=== PATIENT | female | born 1945 | race Caucasian/White ===

== ENCOUNTER 2016-05-29 20:11 | Inpatient (IN) ==
--- NOTE | 2016-05-29 20:31 | ED EKG INTERP ---
EKG Interpretation - EKG Time of EKG reading by physician:: 20:14 EKG Read and Signed by:: Lucas Waite EKG Interpretation (*Must complete 3 of following elements*): Normal Rate: 103 Rhythm: Sinus tachycardia Attestation - Scribe Verification/Attestation Scribe:: Catracho Edmond Acting as Scribe for:: Lucas Waite Scribe documention review:: This chart was documented by a scribe and accurately reflects the service the provider performed and the decisions made by the provider.
--- NOTE | 2016-05-29 20:37 | PROVIDER DOCUMENTATION ---
HPI-Respiratory General - General Chief Complaint: Shortness of Breath Stated Complaint: SOB Time Seen by Provider: 05/29/16 20:22 Source: patient Allergies/Adverse Reactions: Patient Allergies Allergy/AdvReac Type Severity Reaction Status Date / Time amoxicillin Allergy Unknown Unknown Verified 05/29/16 21:17 Home Medications: Home Medication List Medication Instructions Recorded Confirmed Last Taken Type Albuterol [Albuterol Neb] 2.5 mg INH [id number] 06/28/12 05/29/16 05/29/16 History Alprazolam [Xanax] 0.5 mg PO TID 06/28/12 05/29/16 05/29/16 History Aspirin 81 mg PO DAILY 06/28/12 05/29/16 05/29/16 History Lisinopril [Zestril] 10 mg PO DAILY 06/28/12 05/29/16 05/29/16 History Omeprazole 20 mg PO DAILY 06/28/12 05/29/16 05/29/16 History Pravastatin Sodium 80 mg PO HS 06/28/12 05/29/16 05/29/16 History Baclofen 10 mg PO DAILY 02/04/14 05/29/16 05/29/16 History Citalopram [Celexa] 1 tab PO DAILY 02/04/14 05/29/16 05/29/16 History Oxybutynin Chloride [Ditropan Xl] 10 mg PO QHS 02/09/15 05/29/16 05/29/16 History Hydrocodone/Acetaminophen [[place]sea 1 tab PO PRN PRN 05/29/16 05/29/16 05/29/16 History 5-325 Tablet] Morphine Liquid [Roxanol Conc. 10 mg PO PRN PRN 05/29/16 05/29/16 05/29/16 History Liquid] Tramadol [Ultram] 1 tab PO 4XDAY 05/29/16 05/29/16 05/29/16 History Trazodone [Desyrel] 1 tab PO HS 05/29/16 05/29/16 05/29/16 History - History of Present Illness-Resp Nature of Presenting Problem: Pt is a 70 yof who presents to ER via EMS with CC of sob that started earlier tonight. Pt reports that she has recently developed a mild, non productive cough and worsening shortness of breath. Per EMS, pt was 83% on 3L O2 nasal canula at home and after a breathing treatment in ambulance, pt was 90% on 3L O2. On exam, pt was mildly tachycardic and had a B/P of (114/53). Quality of Pain: reports: other (sob) Severity in ED: reports: moderate Onset/Duration: reports: this evening Timing: reports: still present, improving Cough Quality/Degree: reports: mild. denies: productive cough Episode Frequency: occasional episodes Modifying Factors: improves with: albuterol nebulizer Associated Symptoms: reports: cough, shortness of breath, short of breath, wheezing. denies: chest pain/soreness, dizziness, earache, facial pain, fever/ chills, flu-like symptoms, headache, heart racing, hurts to breathe, hyperventilating, lightheadedness, muscle/bodyaches, nasal congestion, nasal drainage, sinus pain, sore throat, sweaty Review of Systems - Adult - REVIEW OF SYSTEMS - ADULT Constitutional: denies: chills, fever, fatique, night sweats, weight gain, weight loss Eyes: reports: no symptoms reported Ears, Nose, Mouth & Throat: reports: no symptoms reported Cardiovascular: denies: chest pain, edema, heart murmur, irregular heart rate, orthopnea, palpitations, poor circulation, PND, syncope Respiratory: reports: chronic cough, cough, shortness of breath, wheezing. denies: dyspnea on exertion, excessive sputum production, hemoptysis, pleurisy Gastrointestinal: reports: no symptoms reported Genitourinary: reports: no symptoms reported Musculoskeletal: reports: no symptoms reported Integumentary: reports: no symptoms reported Neurological: denies: ataxia, dizziness/vertigo, headache/migraines, loss of balance, numbness, paresthesia, seizure, slurred speech, syncope, tremors Psychiatric: reports: no symptoms reported Endocrine: reports: no symptoms reported Hematologic/Lymphatic: reports: no symptoms reported Allergic/Immunologic: reports: no symptoms reported All Other Systems: Reviewed and Negative Past History - Adult - PAST MEDICAL HISTORY-ADULT Review of Records: reports: Nursing Assessment Review, Medications Reviewed Cardiovascular: reports: HTN, hyperlipidemia Respiratory: reports: COPD Neurological: reports: CVA, stroke deficits (left arm contracted) - PRIOR SURGERIES/PROCEDURES Surgical/Procedure History: reports: appendectomy, hysterectomy, other (CTS) - IMMUNIZATION STATUS Childhood Immunizations: See Nurse Assessment Flu Vaccine: See Nurse Assessment Physical Exam-General - PHYSICAL EXAM-ADULT Initial Vital Signs Reviewed: Yes - CONSTITUTIONAL General Appearance: appears well, alert, moderate distress, cachetic, thin, lethargic. negative: no apparent distress, mild distress, severe distress, obese, anxious, slow to respond, obtunded, combative - RESPIRATORY Respiratory: chest non-tender, rhonchi (mild diffuse), wheezing. negative: lungs clear, normal breath sounds - CARDIOVASCULAR Cardiovascular: normal peripheral pulses, tachycardia. negative: regular rate, rhythm, bradycardia, diastolic murmur, systolic murmur, irregularly irregular - NEUROLOGIC Neurologic: grossly normal, no motor/sensory deficits. negative: facial droop, focal weakness, motor weakness, sensory deficit - PSYCHIATRIC Psych/Mental Status: normal thought content, normal thought process, oriented x 3, anxious, disheveled. negative: normal mood/affect, disoriented x 3, depressed affect, paranoid, tearful Progress - PLAN OF CARE/RESULTS Progress/Plan/Lab Results: POC: labs/X-ray Vital Signs - 24 hr 05/29/16 05/29/16 20:22 22:18 Temperature 98.7 F Pulse Rate 107 H 87 Respiratory 18 14 Rate Blood Pressure 114/53 97/62 O2 Sat by Pulse 99 99 Oximetry Orders Category Date Time Status Cardiac Monitoring DIRECTED Care 05/29/16 20:22 Active Saline Loc NOW Care 05/29/16 20:22 Active CHEST-2 VIEWS [RAD] Stat Exams 05/29/16 20:22 Taken BLOOD CULTURE [BLDCUL] Stat Lab 05/29/16 20:20 Results CBC WITH ELECTRONIC DIFF [HEME] Stat Lab 05/29/16 18:42 Completed CK PROFILE [SP CHEM] Stat Lab 05/29/16 20:15 Completed COMPREHENSIVE METABOLIC PANEL [CHEM] Stat Lab 05/29/16 20:15 Completed MAGNESIUM [CHEM] Stat Lab 05/29/16 20:15 Completed PRO B-NATRIURETIC PEPTIDE Stat Lab 05/29/16 20:15 Completed PROTIME WITH INR [COAG] Stat Lab 05/29/16 18:42 Completed PTT [COAG] Stat Lab 05/29/16 18:42 Completed TROPONIN T Stat Lab 05/29/16 20:15 Completed EKG [EKG] Stat Ther 05/29/16 20:22 Ordered Laboratory Tests 05/29/16 05/29/16 05/29/16 18:42 18:42 20:15 WBC 15.03 H RBC 4.15 L Hgb 12.7 Hct 40.1 MCV 96.6 MCH 30.6 MCHC 31.7 L RDW Std Deviation 13.0 Plt Count 236 MPV 10.6 H Immature Gran % (Auto) 0.3 Neut % (Auto) 85.3 H Lymph % (Auto) 6.5 L [place] % (Auto) 7.7 Eos % (Auto) 0.1 Baso % (Auto) 0.1 Immature Gran # (Auto) 0.04 Neut # (Auto) 12.85 H Lymph # (Auto) 0.97 L [place] # (Auto) 1.15 H Eos # (Auto) 0.01 Baso # (Auto) 0.01 PT 9.9 INR 0.93 PTT (Actin FS) 27.6 Sodium 138 Potassium 5.5 H Chloride 94 L Carbon Dioxide 26 Anion Gap 18 BUN 25 H Creatinine 1.3 H Estimated GFR/1.73 m2 41 BUN/Creatinine Ratio 19 Glucose 91 Calculated Osmolality 280 Calcium 10.3 H Magnesium 1.7 Total Bilirubin 0.45 AST 46 H ALT 24 Alkaline Phosphatase 57 Creatine Kinase 646 H Creatine Kinase Index 1.5 CK-MB (CK-2) 9.69 H Troponin T Jyx-A-Enjnacqaosq Pept Total Protein 7.0 Albumin 4.3 Globulin 2.7 Albumin/Globulin Ratio 1.6 05/29/16 05/29/16 20:15 20:15 WBC RBC Hgb Hct MCV MCH MCHC RDW Std Deviation Plt Count MPV Immature Gran % (Auto) Neut % (Auto) Lymph % (Auto) [place] % (Auto) Eos % (Auto) Baso % (Auto) Immature Gran # (Auto) Neut # (Auto) Lymph # (Auto) [place] # (Auto) Eos # (Auto) Baso # (Auto) PT INR PTT (Actin FS) Sodium Potassium Chloride Carbon Dioxide Anion Gap BUN Creatinine Estimated GFR/1.73 m2 BUN/Creatinine Ratio Glucose Calculated Osmolality Calcium Magnesium Total Bilirubin AST ALT Alkaline Phosphatase Creatine Kinase Creatine Kinase Index CK-MB (CK-2) Troponin T 0.028 Yjt-R-Ddieymkjick Pept 1349 H Total Protein Albumin Globulin Albumin/Globulin Ratio - XRAY 1 XRAY: Bilateral XRAY Study: Chest Impression: See EMR Report XRAY Interpretation: COPD - CONSULTS/PCP/HOSPITALIST Notification #1 *Consult/PCP/Hospitalist*: Dr. Olson (Hospitalist) Time Discussed: 22:51 Consult Disposition: Admit Departure - Departure Time of Disposition Order: 22:51 DIAGNOSIS: COPD exacerbation COPD (chronic obstructive pulmonary disease) Qualifiers: COPD type: unspecified COPD Qualified Code(s): J44.9 - Chronic obstructive pulmonary disease, unspecified Leukocytosis Qualifiers: Leukocytosis type: unspecified Qualified Code(s): D72.829 - Elevated white blood cell count, unspecified Disposition: ADMITTED INPATIENT 09 Certified Medical Emergency: Emergent Condition: Stable Attestation - Scribe Verification/Attestation Scribe:: Catracho Edmond Acting as Scribe for:: Lucas Waite Scribe documention review:: This chart was documented by a scribe and accurately reflects the service the provider performed and the decisions made by the provider.
[2016-05-29 21:05] LABS: BASO% 0.1 % (0.0-0.8); EOS# 0.01 X1000 (0.0-0.7); EOS% 0.1 % (0.0-10.0); HEMATOCRIT 40.1 % (37.0-47.0); HEMOGLOBIN 12.7 g/dL (12.0-16.0); IMM GRAN# 0.04 X1000 (0.0-0.04); IMM GRAN% 0.3 % (0.0-0.5); LYMPH# 0.97 X1000 (1.2-3.4); LYMPH% 6.5 % (20.5-51.1); MANUAL DIFF NEEDED? NO; MCH 30.6 PG (27-31); MCHC 31.7 g/dL (33-37); MCV 96.6 FL (81-99); MONO# 1.15 X1000 (0.11-0.59); MONO% 7.7 % (1.7-9.3); MPV 10.6 FL (7.4-10.4); NEUT% 85.3 % (42.2-75.2); PLT 236 X1000 (130-400); RBC 4.15 XMIL (4.2-5.4)
[2016-05-29 21:12] LABS: ALBUMIN 4.3 g/dL (3.5-5.0); CALCIUM 10.3 mg/dL (8.8-10.2); MAGNESIUM 1.7 mg/dL (1.5-2.7); POTASSIUM 5.5 mmol/L (3.5-5.1); TOTAL BILIRUBIN 0.45 mg/dL (0.20-1.00)
[2016-05-29 21:30] LABS: CK INDEX 1.5 (0.0-2.5); CK-MB 9.69 ng/mL (0.0-5.0)
[2016-05-29 21:34] LABS: INR 0.93; PROTIME 9.9 Seconds (9.2-11.7); PTT 27.6 Seconds (22.0-36.0)
[2016-05-29] MEDS ORDERED: LEVAQUIN 750 MG/D5W 150 ML IV ONE (22:52)
[2016-05-29] MEDS ORDERED: SOLU-MEDROL IV ONE (22:52)
[2016-05-29] MEDS ORDERED: DUONEB (A & A) INH ONE (22:52)
--- NOTE | 2016-05-30 00:59 | HISTORY AND PHYSICAL ---
PHYSICIAN: Patient of Dr. Serafin Ahn. REASON FOR ADMISSION: One day history of acute shortness of breath. HISTORY OF PRESENT ILLNESS: Ms. Ena Sanchez is a 62-year-old lady with known COPD, hypertension, CVA with left-sided weakness. She comes in today complaining of acute on chronic shortness of breath. She said she has a longstanding history of chronic dyspnea, worse with exertion. She is on constant home O2 at 2 L/minute. Said today her breathing had gotten so bad that it occurred at rest and she got very anxious and need to get things checked out. She denies any leg swelling. She has pain in the right lower extremity but this is chronic and it is due to the fact that she has some degree of left-sided weakness which has caused her to ambulate and as a consequence she ambulates in an abnormal fashion resulting in the pain in her left ankle. However, there is no redness or swelling. No PND but there is orthopnea occurred today. The patient complains of pleuritic pain. No fever. No chills. Her cough is dry. No upper respiratory symptoms. REVIEW OF SYSTEMS: Twelve systems reviewed. It is only notable for urinary urge incontinence and chronic left-sided weakness which is unchanged. Twelve-system review is negative. Positive findings per HPI. ALLERGIES: Amoxil/amoxicillin. MEDICATIONS: Albuterol 2 puffs q.4, aspirin 81 mg daily, Zestril 10 mg a day, omeprazole 20 mg daily, pravastatin 80 mg at bedtime, Xanax 2.5 mg t.i.d., baclofen 10 mg daily, Celexa 20 mg daily, oxybutynin 10 mg at bedtime, Wynot 7.5 p.r.n., Roxanol 10 mg p.r.n., trazodone 50 mg at bedtime, tramadol 50 mg 4 times a day. PAST SURGICAL HISTORY: Hysterectomy and appendectomy, carpal tunnel release. SOCIAL HISTORY: She smokes about 1 pack a day. No alcohol. Lives by herself. On chronic home O2. No illicit drug use. FAMILY HISTORY: Notable for kidney disease in first-degree relatives. Diabetes and heart disease also positive. LABORATORY WORK: White count 15,000, hemoglobin and hematocrit 12 and 40, platelets 256,000 with 85% neutrophils. Potassium 5.5, BUN is 25, creatinine 1.3, calcium 10.3, AST 46, ALT 24. CK is 646. Troponin 0.028. Index is normal, 1.5. PT, PTT are normal. Chest film just shows COPD, no infiltrate. PHYSICAL EXAMINATION: GENERAL: She is a thin, middle-aged woman who appears older than stated age. She is alert and oriented to person and time. VITAL SIGNS: Blood pressure is 97/60, heart rate is 87, respirations 14, temperature is 98.7, and she is 99% on 3 L. PSYCHIATRIC: Has normal mood and affect. HEENT: Head is normocephalic, atraumatic. Eyes, LB EOMI. She is anicteric and not pale. ENT and oropharynx exam is grossly normal except for positive for oral thrush. No sign of cyanosis. NECK: Supple. No JVD or carotid bruit. No thyromegaly. CHEST: Decreased air entry in both lung smith with scattered expiratory wheezes. CARDIOVASCULAR: First and 2nd sounds heard. No gallops, murmurs, rubs. Rhythm is regular. ABDOMEN: Full, soft, nontender with no megaly. Bowel sounds are normal. RECTAL: Exam deferred at this time. EXTREMITIES: No Edema, clubbing or peripheral cyanosis. Pulses distally intact. NEUROLOGIC: Patient has 2/5 power on the left upper extremity and 3/5 power in the left lower extremity. Right side is 5/5. SKIN: Intact with no breakdown lesion or erythema. 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 ASSESSMENT: 1. Chronic obstructive pulmonary disease exacerbation. 2. Chronic respiratory failure secondary to chronic obstructive pulmonary disease. 3. Left-sided hemiparesis secondary to prior cerebrovascular accident. 4. Hypertension. 5. Hyperkalemia. 6. Tobacco use. 7. Dehydration. PLAN: At this time we will start patient on steroids and short-acting bronchodilator therapy. We will cover patient with empiric antibiotics based on her white count. Start patient on D5 normal saline to address not only patient's dehydrated state but also her hyperkalemia. DVT prophylaxis will be instituted using Lovenox. Smoking cessation was reiterated. The patient says she has been trying to quit but does not have the will to quit on short notice at this point in time. Start patient on nystatin for oral thrush and follow. Follow BMP tomorrow to ensure hydration has rectified her degree of dehydration.
[2016-05-30] MEDS ORDERED: TYLENOL PO PRN (01:55)
[2016-05-30] MEDS ORDERED: D5 NS 1,000 ML IV ONE (01:55)
[2016-05-30] MEDS ORDERED: ZOFRAN IV PRN (01:55)
[2016-05-30] MEDS: NORCO-5 PO PRN (03:17)
[2016-05-30] MEDS: DUONEB (A & A) INH SCH ×6 (03:50→22:50)
[2016-05-30] MEDS: XANAX PO SCH ×4 (04:19→16:18)
[2016-05-30] MEDS: DOXYCYCLINE 100 MG in NS 250 ML IV SCH ×2 (04:19→13:54)
--- NOTE | 2016-05-30 05:45 | EKG Report ---
Test Performed on : 05/29/2016 8:14:03 PM Test Reason : Chest Pain Blood Pressure : / mmHG Vent. Rate : 103 BPM Atrial Rate : 103 BPM P-R Int : 124 ms QRS Dur : 070 ms QT Int : 332 ms P-R-T Axes : 083 076 066 degrees QTc Int : 434 ms Sinus tachycardia. Otherwise normal ECG When compared with ECG of 02-MAR-2016 11:41, No significant change was found Unconfirmed Result
[2016-05-30 06:50] LABS: CALCIUM 9.1 mg/dL (8.8-10.2); POTASSIUM 5.2 mmol/L (3.5-5.1)
[2016-05-30] MEDS: LOVENOX SUBQ SCH (06:54)
[2016-05-30] MEDS: PRILOSEC PO SCH (06:54)
[2016-05-30] MEDS: SOLU-MEDROL IV SCH ×3 (06:54→22:41)
[2016-05-30 07:07] LABS: EOS# 0.01 X1000 (0.0-0.7); EOS% 0.1 % (0.0-10.0); HEMATOCRIT 34.5 % (37.0-47.0); HEMOGLOBIN 10.9 g/dL (12.0-16.0); IMM GRAN# 0.02 X1000 (0.0-0.04); IMM GRAN% 0.2 % (0.0-0.5); LYMPH# 0.31 X1000 (1.2-3.4); LYMPH% 2.4 % (20.5-51.1); MANUAL DIFF NEEDED? YES; MCH 30.1 PG (27-31); MCHC 31.6 g/dL (33-37); MCV 95.3 FL (81-99); MONO# 0.12 X1000 (0.11-0.59); MONO% 0.9 % (1.7-9.3); NEUT% 96.4 % (42.2-75.2); PLT 199 X1000 (130-400); RBC 3.62 XMIL (4.2-5.4)
[2016-05-30 07:44] LABS: BANDS 8 % (0-1); LYMPHS 4 % (21-51)
[2016-05-30] MEDS: ASPIRIN PO SCH (08:14)
[2016-05-30] MEDS: CELEXA PO SCH (08:14)
[2016-05-30] MEDS: LIORESAL PO SCH (08:14)
[2016-05-30] MEDS: MYCOSTATIN SUSP PO SCH ×4 (08:14→22:41)
--- NOTE | 2016-05-30 08:16 | Diag Imaging Result Document ---
PROCEDURE NAME: CHEST-2 VIEWS - 05/29/2016 TWO VIEWS OF THE CHEST: FINDINGS: There is COPD. There are granulomatous calcifications in the right lower lobe and middle lobe. Compared to 03/02/2016, there has been no significant change. There is a biopsy marker in the right breast. IMPRESSION: COPD.
[2016-05-30] MEDS: ULTRAM PO SCH ×4 (08:25→22:41)
[2016-05-30] MEDS ORDERED: PNEUMOVAX 23 IM ONE (08:49)
[2016-05-30] MEDS ORDERED: DUONEB (A & A) INH PRN (13:18)
[2016-05-30] MEDS ORDERED: VANCOMYCIN IV PER PHARMACY MISC SCH (20:45)
[2016-05-30] MEDS: DESYREL PO SCH (22:41)
[2016-05-30] MEDS: PRAVACHOL PO SCH (22:41)
[2016-05-30] MEDS ORDERED: VANCOMYCIN 1,200 MG in NS 250 ML IV ONE (23:00)
[2016-05-31] MEDS: DOXYCYCLINE 100 MG in NS 250 ML IV SCH ×2 (02:24→13:35)
[2016-05-31] MEDS: DUONEB (A & A) INH SCH ×6 (03:22→22:42)
[2016-05-31] MEDS: LOVENOX SUBQ SCH (05:37)
[2016-05-31] MEDS: SOLU-MEDROL IV SCH ×3 (05:37→22:02)
[2016-05-31] MEDS: PRILOSEC PO SCH ×2 (05:37→07:30)
[2016-05-31 06:21] LABS: HEMATOCRIT 33.6 % (37.0-47.0); HEMOGLOBIN 10.8 g/dL (12.0-16.0); LYMPH# 0.44 X1000 (1.2-3.4); MANUAL DIFF NEEDED? YES; MCH 30.3 PG (27-31); MCHC 32.1 g/dL (33-37); MCV 94.4 FL (81-99); MONO# 0.42 X1000 (0.11-0.59); MONO% 3.9 % (1.7-9.3); MPV 10.7 FL (7.4-10.4); NEUT% 92.1 % (42.2-75.2); PLT 183 X1000 (130-400); RBC 3.56 XMIL (4.2-5.4)
[2016-05-31 06:34] LABS: BANDS 2 % (0-1); LYMPHS 8 % (21-51); MONO 4 % (1-9)
[2016-05-31 06:55] LABS: AGAP 9; ALBUMIN 3.3 g/dL (3.5-5.0); ALKALINE PHOSPHATASE 49 U/L (32-104); BUN 22 mg/dL (8-22); CALCIUM 8.9 mg/dL (8.8-10.2); CHLORIDE 102 mmol/L (98-107); COSMO 283; GOT 33 U/L (10-30); GPT 22 U/L (10-36); POTASSIUM 5.1 mmol/L (3.5-5.1); SODIUM 139 mmol/L (136-145); TCO2 28 mmol/L (25-35); TOTAL BILIRUBIN 0.14 mg/dL (0.20-1.00); TOTAL PROTEIN 5.8 g/dL (6.3-8.3)
[2016-05-31] MEDS ORDERED: PRINIVIL PO SCH (09:00)
[2016-05-31] MEDS: XANAX PO SCH ×3 (09:28→16:36)
[2016-05-31] MEDS: CELEXA PO SCH (09:28)
[2016-05-31] MEDS: ASPIRIN PO SCH (09:28)
[2016-05-31] MEDS: LIORESAL PO SCH (09:28)
[2016-05-31] MEDS: MYCOSTATIN SUSP PO SCH ×4 (09:29→22:03)
[2016-05-31] MEDS: ULTRAM PO SCH ×4 (09:38→22:02)
[2016-05-31] MEDS ORDERED: DULCOLAX PR ONE (11:02)
--- NOTE | 2016-05-31 17:55 | PROGRESS NOTE ---
DATE: 05/31/2016 SUBJECTIVE: This patient states that she is feeling a little bit better. She is still complaining of shortness of breath and generalized weakness. She denies nausea, vomiting, diarrhea, constipation. OBJECTIVE: Vital Signs: Temperature 98.4 degrees, pulse 91, respiratory rate 17, blood pressure 160/68, O2 saturation 100% on 3 L of nasal cannula. HEENT: Head normocephalic. No trauma. PERRLA. Neck: Supple. No JVD. No masses. Central trachea. Chest: Decreased air entry bilaterally, scattered expiratory wheezing. Cardiovascular: RRR. No murmurs. Abdomen: Soft, nontender, nondistended. No hepatosplenomegaly. Extremities: No edema. No clubbing. No cyanosis. Neurological: The patient is alert and oriented x3, 2-3/5 left upper and lower extremity strength. Right side is normal. LABORATORY: WBC 10.8, hemoglobin 10.8, hematocrit 33.6, platelet 183,000. Sodium 139, potassium 5.1, chloride 102, bicarbonate 28, BUN 22, creatinine 0.7, glucose 142, calcium 8.9. ASSESSMENT AND PLAN: 1. Bacteremia. We have a positive blood culture that showed gram-positive cocci 1 of 2 but the 2nd blood culture is positive as well but we do not know the bacteria at this moment. This patient has been has been placed on vancomycin and infectious disease department has been consulted. 2. Chronic obstructive pulmonary disease exacerbation. At this point will continue with the same treatment. She is on antibiotics and breathing treatment. She is feeling a little bit better. 3. Chronic respiratory failure secondary to acute on chronic respiratory failure secondary to chronic obstructive pulmonary disease exacerbation. Continue with the same management. It looks like this patient is getting better. 4. Acute kidney injury. Resolved. 5. Left side hemiparesis secondary to prior cerebrovascular accident. Continue with the same management. 6. Hypertension. Will continue with the same medication for now. 7. Hyperkalemia, resolved. 8. Dehydration, resolved. 9. Tobacco use. This patient has been highly advised against smoking cigarettes, will continue with daily cessation education.
[2016-05-31] MEDS: ROCEPHIN 1 GM/NS 50 ML IV SCH (18:22)
--- NOTE | 2016-05-31 20:05 | CONSULTATION ---
DATE OF CONSULTATION: 05/31/2016 CONCLUSION: Patient is admitted to the hospital. She is complaining of shortness of breath and coughing, but her chest x-ray shows only COPD. She does have 2 blood cultures positive for gram positive cocci. I think that they may well be identified as a pneumococcus and that the patient does have a pneumococcal infection in her lungs which just does not show up yet on chest x-ray. RECOMMENDATIONS: I agree with Dr. Reich's decision to treat the patient with Rocephin and vancomycin pending culture results. DISCUSSION: The patient said that she had been coughing for the past 3 to 4 days. She initially did cough up some sputum which was yellow in color and now she coughs up much less and it is clear. She is not having fever or shaking chills. Her lab studies show a CBC with a white count of 10,870, hemoglobin 10.8, and platelet count 183,000. Creatinine 0.7. GFR is greater than 60. Liver function studies are normal. Chest x-ray shows findings compatible with COPD. PODIATRIC ASSISTANT HISTORY: She is a 2 para 2 AB 0. She has had a hysterectomy. PREVIOUS HOSPITALIZATIONS AND OPERATIONS: She has had labor and deliveries, hysterectomy, and carpal tunnel surgery. MEDICAL DISEASES: Positive for stroke and osteoarthritis. FAMILY HISTORY: Positive for kidney disease, diabetes and heart attack. SOCIAL HISTORY: The patient lives alone. She has a lady that comes to her house 4 times a week and helps her out, and also she has Meals On Wheels. She is . She says she stopped smoking cigarettes in February 2016. She rarely drinks alcoholic beverages. At home she is on O2. MEDICATIONS AT HOME: Morphine, Desyrel, Zestril, Ultram Celexa, hydrocodone, omeprazole, baclofen, aspirin, albuterol, pravastatin, alprazolam and oxybutynin. ALLERGIES: The patient is allergic to amoxicillin, the manifestations of which are uncertain. REVIEW OF SYSTEMS: Eyes and ears: She denies having any troubles seeing or hearing. Neck: No stiffness. Respiratory: She does get short of breath with minimal exertion. Cardiac: She does not have a chest pain or palpitations. GI: No nausea, vomiting, or diarrhea. : No dysuria or flank pain. Neurologic: The patient has a left upper extremity paralysis and a left lower leg paresis. There is no tremor. PHYSICAL EXAMINATION: Vital Signs: Temperature is 98.4 degrees, pulse 91, respirations 17, blood pressure 160/68. Weight: 94 pounds. Generally: This is an ill-appearing, elderly female who is in no acute distress. Head, eyes, ears, nose, and throat: She can hear my spoken words. She can see near objects. She has upper dentures. Her mandibular teeth are in good repair, do not have caries. Neck: No meningismus. Thorax: Increased AP diameter of the chest. Lungs: Clear to auscultation. Cardiovascular: Heart rate is regular. Abdomen: Soft and nontender. Neurologic: The patient has left arm paralysis and a left leg paresis. She can hear my spoken words. She can see near objects. Integument: No rash noted. Thank you for the consult.
[2016-05-31] MEDS: DULCOLAX PO SCH (22:01)
[2016-05-31] MEDS: PRAVACHOL PO SCH (22:02)
[2016-05-31] MEDS: DESYREL PO SCH (22:02)
[2016-06-01] MEDS: DUONEB (A & A) INH SCH ×6 (02:45→23:00)
[2016-06-01] MEDS: PRILOSEC PO SCH (06:17)
[2016-06-01] MEDS: LOVENOX SUBQ SCH (06:18)
[2016-06-01] MEDS: SOLU-MEDROL IV SCH ×3 (06:18→21:34)
[2016-06-01] MEDS: NORCO-5 PO PRN (06:18)
[2016-06-01 06:50] LABS: HEMATOCRIT 36.4 % (37.0-47.0); HEMOGLOBIN 11.7 g/dL (12.0-16.0); IMM GRAN# 0.02 X1000 (0.0-0.04); IMM GRAN% 0.2 % (0.0-0.5); LYMPH% 5.1 % (20.5-51.1); MANUAL DIFF NEEDED? YES; MCH 30.2 PG (27-31); MCHC 32.1 g/dL (33-37); MCV 93.8 FL (81-99); MONO# 0.35 X1000 (0.11-0.59); MONO% 3.5 % (1.7-9.3); MPV 10.7 FL (7.4-10.4); NEUT% 91.2 % (42.2-75.2); PLT 209 X1000 (130-400); RBC 3.88 XMIL (4.2-5.4)
[2016-06-01 07:22] LABS: AGAP 10; ALBUMIN 3.8 g/dL (3.5-5.0); ALKALINE PHOSPHATASE 53 U/L (32-104); BUN 18 mg/dL (8-22); CALCIUM 9.1 mg/dL (8.8-10.2); CHLORIDE 101 mmol/L (98-107); COSMO 286; GOT 35 U/L (10-30); GPT 34 U/L (10-36); POTASSIUM 4.2 mmol/L (3.5-5.1); SODIUM 142 mmol/L (136-145); TCO2 31 mmol/L (25-35); TOTAL BILIRUBIN 0.18 mg/dL (0.20-1.00); TOTAL PROTEIN 6.2 g/dL (6.3-8.3)
--- NOTE | 2016-06-01 08:46 | Diag Imaging Result Document ---
PROCEDURE NAME: CHEST-PORTABLE - 05/31/2016 SINGLE FRONTAL RADIOGRAPH OF THE CHEST: COMPARISON: 05/29/2016. FINDINGS: There is evidence of prior granulomatous disease. No new consolidations are identified. There is no definite pleural fluid collection. Cardiac silhouette is stable. IMPRESSION: Stable chest with no definite acute pathology.
[2016-06-01 08:48] LABS: BANDS 3 % (0-1); LYMPHS 9 % (21-51); MONO 3 % (1-9)
[2016-06-01 08:49] LABS: LARGE PLATELETS OCCASIONAL
[2016-06-01] MEDS: XANAX PO SCH ×3 (09:18→16:49)
[2016-06-01] MEDS: LIORESAL PO SCH (09:18)
[2016-06-01] MEDS: CELEXA PO SCH (09:18)
[2016-06-01] MEDS: APRESOLINE PO SCH ×3 (09:18→16:50)
[2016-06-01] MEDS: ULTRAM PO SCH ×4 (09:19→21:34)
[2016-06-01] MEDS: ASPIRIN PO SCH (09:19)
[2016-06-01] MEDS: PRINIVIL PO SCH ×2 (09:23→10:13)
[2016-06-01] MEDS: MYCOSTATIN SUSP PO SCH ×4 (09:24→21:39)
--- NOTE | 2016-06-01 09:29 | PROGRESS NOTE ---
DATE: 06/01/2016 PRESENT ILLNESS: The patient has a blood culture positive for gram-positive cocci, both; in fact, she has 2 blood cultures positive for gram-positive cocci. The organism has not been identified as of yet, but I think it could well be a pneumococcus. I think that she probably does have a pneumonia, which just has not shown up yet on chest x-ray. MEDICATIONS: I agree with the decision to place the patient on vancomycin and Rocephin pending culture results. PHYSICAL EXAMINATION: Vital Signs: Temperature is 98.3 degrees, pulse 94, respirations 19, blood pressure 92/87. General: This is an ill-appearing, elderly female. She is in no acute distress. Lungs: Clear to auscultation today. Cardiovascular: Heart rate is regular. Abdomen: Soft and nontender. Neurologic: The patient has a left arm paralysis and a left leg paresis. LABORATORY AND X-RAY: There is no new x-ray. Lab today shows a CBC with a white count of 9880, hemoglobin 11.7, and platelet count 209,000. Creatinine 0.6. GFR is greater than 60. The blood cultures hopefully will be identified today. ASSESSMENT AND PLAN: For now, the patient has bacteremia and most likely a pneumonia. I would suggest continuing with vancomycin and Rocephin pending culture results. COMORBIDITIES: Patient's comorbidities are that she appears to have chronic obstructive pulmonary disease. She was a cigarette smoker, but says she stopped in February 2016.
[2016-06-01] MEDS ORDERED: VANCOMYCIN 1 GM/NS 250 ML IV SCH (13:00)
[2016-06-01 13:49] LABS: URINE MICRO REVIEW NEEDED? NO; URINE SOURCE CATH
[2016-06-01 13:59] LABS: BILIRUBIN URINE NEGATIVE (NEGATIVE); BLOOD URINE SMALL (NEGATIVE); COLOR YELLOW; GLUCOSE URINE 70 mg/dL (NEGATIVE); LEUKOCYTES URINE LARGE (NEGATIVE); NITRITE URINE NEGATIVE (NEGATIVE); PROTEIN URINE 100 mg/dL (NEGATIVE); SP GRAVITY URINE 1.018; TURBIDITY URINE CLEAR (CLEAR); UR EPITHELIAL CELLS <10 /HPF (<10); URINE BACTERIA 1+ /HPF; URINE WBC TNTC /HPF (<10); UROBILINOGEN URINE NORMAL (NORMAL)
--- NOTE | 2016-06-01 15:14 | PROGRESS NOTE ---
DATE: 06/01/2016 SUBJECTIVE: This patient states that she is feeling better. She is still complaining of shortness of breath and generalized weakness, she has been wheezing, she denies nausea, vomiting, diarrhea, or constipation. OBJECTIVE: Vital Signs: Temperature 98 degrees, pulse 88, respiratory rate 19, blood pressure 160/68, O2 saturation 100% on 3 L of nasal cannula. HEENT: Head normocephalic. No trauma. PERRLA. Neck: Supple. No JVD. No masses. Central trachea. Chest: Bilateral scattered expiratory wheezing, mild rales at the bases. Cardiovascular: RRR. No murmurs. Abdomen: Soft, nontender, nondistended. No hepatosplenomegaly. Extremities: No edema. No clubbing. No cyanosis. Decreased muscle mass. Neurological: The patient is alert and oriented x3. A 2-3/5 left upper extremity and lower extremity strength. Right side is normal. LABORATORY: WBC 9.8, hemoglobin 11.7, hematocrit 36.4, platelets 209,000. Sodium 142, potassium 4.2, chloride 101, bicarbonate 31, BUN 18, creatinine 0.6, glucose 122, calcium 9.1, albumin 3.8. ASSESSMENT AND PLAN: 1. Bacteremia we have a positive blood culture that showed gram positive cocci, this patient has been placed on vancomycin and also she has been getting ceftriaxone. Infectious Disease Department is following this patient. 2. Chronic obstructive pulmonary disease exacerbation. At this point, we will continue with the same treatment. She is still on antibiotics and breathing treatment, steroids, and oxygen. This patient is still having shortness of breath and wheezing. 3. Acute on chronic respiratory failure likely secondary to chronic obstructive pulmonary disease exacerbation. Continue with the same management. 4. Acute kidney injury. Resolved. 5. History of cerebrovascular accident with left side hemiparesis. Continue with the same management. 6. Hypertension. The blood pressure has been high, I increased the dose of lisinopril from 10 to 20 daily, and I will start this patient on a low dose of hydralazine 10 mg p.o. 3 times a day. 7. Hyperkalemia. Resolved. 8. Dehydration. Resolved. 9. Tobacco abuse. This patient has been highly advised against tobacco use and abuse, we will continue with daily cessation education.
[2016-06-01] MEDS: ROCEPHIN 1 GM/NS 50 ML IV SCH (16:50)
[2016-06-01] MEDS: PRAVACHOL PO SCH (21:34)
[2016-06-01] MEDS: DULCOLAX PO SCH (21:34)
[2016-06-01] MEDS: DESYREL PO SCH (21:34)
[2016-06-02] MEDS: DUONEB (A & A) INH SCH ×6 (03:10→23:45)
[2016-06-02] MEDS: SOLU-MEDROL IV SCH ×3 (06:06→23:10)
[2016-06-02] MEDS: NORCO-5 PO PRN (06:06)
[2016-06-02] MEDS: LOVENOX SUBQ SCH (06:07)
[2016-06-02] MEDS: PRILOSEC PO SCH (06:07)
[2016-06-02 06:10] LABS: MANUAL DIFF NEEDED? NO
[2016-06-02 06:17] LABS: HEMOGLOBIN 11.7 g/dL (12.0-16.0); IMM GRAN# 0.05 X1000 (0.0-0.04); IMM GRAN% 0.6 % (0.0-0.5); LYMPH# 0.65 X1000 (1.2-3.4); LYMPH% 8.4 % (20.5-51.1); MCH 30.1 PG (27-31); MCHC 32.5 g/dL (33-37); MCV 92.5 FL (81-99); MONO# 0.51 X1000 (0.11-0.59); MONO% 6.6 % (1.7-9.3); MPV 10.2 FL (7.4-10.4); NEUT% 84.4 % (42.2-75.2); PLT 224 X1000 (130-400); RBC 3.89 XMIL (4.2-5.4)
[2016-06-02 06:31] LABS: AGAP 12; BUN 18 mg/dL (8-22); CALCIUM 8.9 mg/dL (8.8-10.2); CHLORIDE 96 mmol/L (98-107); COSMO 285; POTASSIUM 3.9 mmol/L (3.5-5.1); SODIUM 141 mmol/L (136-145); TCO2 33 mmol/L (25-35)
--- NOTE | 2016-06-02 08:46 | PROGRESS NOTE ---
DATE: 06/02/2016 PRESENT ILLNESS: The patient is admitted to the hospital with positive blood cultures. Both are growing Staph capitis, which is the type of coagulase-negative staph. Since both blood cultures are growing the same organism, I think this is a true bacteremia. The exact origin of the bacteremia is uncertain to me at this time. She does have a clear repeat chest x-rays, so it does not look like it originates from a pneumonia. I am concerned that she may have endocarditis. MEDICATIONS: Currently, the patient is on vancomycin and Rocephin. PHYSICAL EXAMINATION: Vital Signs: Temperature is 98.1 degrees, pulse 78, respirations 16, blood pressure 175/73. General: This is a chronically ill-appearing, elderly female. She is in no acute distress. Lungs: Clear to auscultation. Cardiovascular: Regular heart rate. I did not hear a murmur. Abdomen: Soft and nontender. Neurologic: The patient's left arm is paralyzed. She has a left leg paresis. LAB AND X-RAY: The chest x-ray shows no acute disease, but as mentioned above both blood cultures are growing Staph capitis. Creatinine is 0.7. GFR is greater than 60. CBC shows a white count of 7700, hemoglobin 11.7, and platelet count 224,000. ASSESSMENT AND PLAN: Patient has a Staph bacteremia, the origin of which is uncertain. As mentioned above, I am going to get an echocardiogram to look for the possibility of endocarditis. My plan is to treat with vancomycin as a single agent and discontinue Rocephin. The reason why I am sticking with vancomycin is that the patient is allergic to amoxicillin, although the manifestations of the allergy were not certain. COMORBIDITIES: She is elderly and has chronic obstructive pulmonary disease and has a history of cigarette smoking.
[2016-06-02] MEDS: PRINIVIL PO SCH (10:55)
[2016-06-02] MEDS: ULTRAM PO SCH ×4 (10:57→23:15)
[2016-06-02] MEDS: LIORESAL PO SCH (10:58)
[2016-06-02] MEDS: XANAX PO SCH ×3 (10:58→18:32)
[2016-06-02] MEDS: ASPIRIN PO SCH (10:58)
[2016-06-02] MEDS: APRESOLINE PO SCH ×2 (11:00→18:32)
[2016-06-02] MEDS: CELEXA PO SCH (11:00)
[2016-06-02] MEDS: MYCOSTATIN SUSP PO SCH ×4 (12:16→23:10)
[2016-06-02] MEDS: VANCOMYCIN 1 GM/NS 250 ML IV SCH (13:53)
--- NOTE | 2016-06-02 14:00 | PROGRESS NOTE ---
DATE: 06/02/2016 SUBJECTIVE: This patient states that she is feeling better. She is still complaining of mild shortness of breath. We will continue with oxygen. She uses oxygen at home as well. Blood pressure is still elevated so I will increase the dose of hydralazine from 10 mg p.o. t.i.d. to 25 t.i.d. She has a positive blood culture that showed Staphylococcus capitis and Infectious Disease Department is on board. We will get an echocardiogram to rule out any vegetations. I discussed the case with the Infectious Disease doctor and this patient should go home/rehab center with IV antibiotics. OBJECTIVE: Vital Signs: Temperature 98.4 degrees, pulse 86, respiratory rate 16, blood pressure 177/64, oxygen saturation 100% on 3 L of nasal cannula. HEENT: Head normocephalic. No trauma. PERRLA. Neck: Supple. No JVD. No masses. Central trachea. Cardiovascular: RRR. No murmurs. Chest: Bilateral scattered expiratory wheezing. Mild rales at the bases. Abdomen: Soft, nontender, nondistended. No hepatosplenomegaly. Extremities: No edema. No clubbing. No cyanosis. Decreased muscle mass. Neurological: The patient is alert and oriented x3. She has 2/5 left upper extremity and lower extremity strength. Right side is normal. LABORATORY: WBC 7.7, hemoglobin 11.7, hematocrit 36.0, platelets 244,000. Sodium 141, potassium 3.9, chloride 96, bicarbonate 33. BUN 18, creatinine 0.7, glucose 139, calcium 8.9. ASSESSMENT AND PLAN: 1. Bacteremia, secondary to Staphylococcus capitis. This patient is going to continue with IV antibiotics. Infectious Disease Department is following this patient. She will get an echocardiogram done to rule out any vegetation at the level of the valve. We are going to ask for placement for this patient. 2. Chronic obstructive pulmonary disease exacerbation. This is getting better. I will continue with the antibiotics, breathing treatment, steroids and oxygen. 3. Acute on chronic respiratory failure, likely secondary to #2. 4. Acute kidney injury. Resolved. 5. History of cerebrovascular accident with left-sided hemiparesis. Continue with the same management. 6. Hypertension. Blood pressure is still high. I will increase the dose of hydralazine from 10 mg p.o. t.i.d. to 25 mg p.o. t.i.d. 7. Hyperkalemia, resolved. 8. Dehydration, resolved. 9. Tobacco abuse. This patient has been highly advised against tobacco use. I will continue with daily cessation education.
--- NOTE | 2016-06-02 16:02 | ECHO REPORT ---
ORDER DATE: 06/02/2016 INDICATIONS: Left-sided weakness, possible endocarditis. FINDINGS: 1. Right atrium is normal in size at 3.1 cm. 2. Trace tricuspid regurgitation. RV systolic pressure at 25. 3. Normal RV size and systolic function. 4. Trace pulmonic insufficiency. 5. Normal left atrial size at 3.2 cm. 6. No mitral prolapse. Trace mitral regurgitation. 7. Normal LV size, end-diastolic dimension of 3.6. Normal wall thicknesses with a posterior and interventricular septal thickness is 0.9 cm each. Normal LV systolic function. Estimated ejection fraction 60% with normal wall motion. 8. Aortic valve opens well. No evidence of stenosis or insufficiency. 9. Aorta appears normal in visualized segments. 10. No pericardial effusion seen.
[2016-06-02] MEDS: DESYREL PO SCH (23:10)
[2016-06-02] MEDS: DULCOLAX PO SCH (23:11)
[2016-06-02] MEDS: PRAVACHOL PO SCH (23:11)
[2016-06-03] MEDS: DUONEB (A & A) INH SCH ×6 (03:46→23:27)
[2016-06-03 06:43] LABS: BASO% 0.1 % (0.0-0.8); EOS# 0.01 X1000 (0.0-0.7); EOS% 0.1 % (0.0-10.0); HEMATOCRIT 39.4 % (37.0-47.0); IMM GRAN# 0.07 X1000 (0.0-0.04); IMM GRAN% 0.9 % (0.0-0.5); LYMPH% 7.4 % (20.5-51.1); MANUAL DIFF NEEDED? YES; MCH 30.6 PG (27-31); MCV 92.7 FL (81-99); MONO# 0.49 X1000 (0.11-0.59); MPV 10.2 FL (7.4-10.4); NEUT% 85.5 % (42.2-75.2); PLT 230 X1000 (130-400); RBC 4.25 XMIL (4.2-5.4)
[2016-06-03] MEDS: ULTRAM PO SCH ×5 (06:50→21:59)
[2016-06-03] MEDS: SOLU-MEDROL IV SCH ×3 (06:50→21:59)
[2016-06-03] MEDS: PRILOSEC PO SCH (06:50)
[2016-06-03] MEDS: LOVENOX SUBQ SCH (06:51)
[2016-06-03 06:52] LABS: AGAP 8; ALBUMIN 3.6 g/dL (3.5-5.0); ALKALINE PHOSPHATASE 59 U/L (32-104); BUN 21 mg/dL (8-22); CALCIUM 8.9 mg/dL (8.8-10.2); CHLORIDE 95 mmol/L (98-107); COSMO 281; GOT 23 U/L (10-30); GPT 42 U/L (10-36); POTASSIUM 4.1 mmol/L (3.5-5.1); SODIUM 138 mmol/L (136-145); TCO2 35 mmol/L (25-35)
[2016-06-03 07:22] LABS: BANDS 2 % (0-1); LYMPHS 8 % (21-51); MONO 6 % (1-9)
--- NOTE | 2016-06-03 10:02 | PROGRESS NOTE ---
DATE: 06/03/2016 PRESENT ILLNESS: The patient has a Staph capitis bacteremia, the exact origin of which is uncertain to me. MEDICATIONS: The patient is receiving vancomycin 1 g IV daily. PHYSICAL EXAMINATION: Vital Signs: Temperature is 98.7 degrees, pulse 81, respirations 14, blood pressure 181/78. General: This is a chronically ill-appearing, elderly female. She is in no acute distress. Lungs: Clear to auscultation. Cardiovascular: Regular heart rate. Abdomen: Soft and nontender. LAB AND X-RAY: There is no new x-ray. An echocardiogram did not show any vegetations. Repeat blood cultures are negative at 48 hours. CBC shows a white count of 8130, hemoglobin 13 and platelet count 230,000. Creatinine is 0.7. ASSESSMENT AND PLAN: The plan is to send the patient to a rehab facility on vancomycin. I have ordered the following for the medications when the patient goes to the rehabilitation facility. Vancomycin 1 g IV daily x14 days. CBC, creatinine and vancomycin trough level every Monday x14 days. Also, I am going to order a PICC today and, when the patient is done with the antibiotics at the rehab facility, the PICC can be removed. COMORBIDITIES: The patient's comorbidities is that she is elderly, she has COPD and a history of cigarette smoking.
[2016-06-03] MEDS: APRESOLINE PO SCH ×3 (11:52→17:08)
[2016-06-03] MEDS: CELEXA PO SCH (11:53)
[2016-06-03] MEDS: LIORESAL PO SCH (11:53)
[2016-06-03] MEDS: PRINIVIL PO SCH (11:53)
[2016-06-03] MEDS: ASPIRIN PO SCH (11:53)
[2016-06-03] MEDS: XANAX PO SCH ×3 (11:56→17:08)
[2016-06-03] MEDS: COREG PO SCH ×2 (12:33→21:59)
[2016-06-03] MEDS: MYCOSTATIN SUSP PO SCH ×3 (14:48→22:01)
[2016-06-03] MEDS: VANCOMYCIN 1 GM/NS 250 ML IV SCH ×2 (14:50→18:17)
--- NOTE | 2016-06-03 16:55 | PROGRESS NOTE ---
DATE: 06/03/2016 SUBJECTIVE: This patient states that she is feeling better. She is not complaining of shortness of breath today. We will continue with oxygen. weigh and charge worker is on board. She will be discharged to a rehabilitation center with IV antibiotics. Infectious Disease Department evaluated this patient, and they suggest 14 days of vancomycin and follow up laboratory as an outpatient. OBJECTIVE: Vital Signs: Temperature 98.7 degrees, pulse 94, respiratory rate 14, blood pressure 176/86, oxygen saturation 96 on 2 L of nasal cannula. HEENT: Head normocephalic. No trauma. PERRLA. Neck: Supple. No JVD. No masses. Central trachea. Cardiovascular: RRR. No murmurs. Chest: Bilateral scattered rales, mostly at the bases. Abdomen: Soft, nontender, nondistended. No hepatosplenomegaly. Extremities: No edema. No clubbing. No cyanosis. Decreased muscle mass. Neurological examination: The patient is alert and oriented x3. She has 2/5 left upper extremity and lower extremity strength. The right side is normal. LABORATORY: WBC 8.1, hemoglobin 13, hematocrit 39.4, platelets 230. Sodium 138, potassium 4.1, chloride 95, bicarbonate 35. BUN 21, creatinine 0.7, glucose 149, calcium 8.9. ASSESSMENT AND PLAN: 1. Bacteremia secondary to Staphylococcus capitis. We will continue with antibiotics, vancomycin. Infectious Disease Department evaluated this patient and they suggested to continue with vancomycin for at least 14 days. Echocardiogram did not show any kind any kind of vegetations/endocarditis. She will get a PICC line. 2. Urinary tract infection. Continue with antibiotics. 3. Chronic obstructive pulmonary disease exacerbation. This is much better. We will continue with the same treatment for now. 4. Acute on chronic respiratory failure, resolved, likely secondary to chronic obstructive pulmonary disease exacerbation. 5. Acute kidney injury, resolved. 6. History of cerebrovascular accident with left-sided hemiparesis. Continue with the same management. 7. Hypertension. The blood pressure has been high. The dose of hydralazine has been increased, and also the dose of lisinopril has been increased in the past. Today I added carvedilol 2.5 twice daily and will monitor. 8. Hyperkalemia, resolved. 9. Dehydration, resolved. 10. Tobacco abuse. This patient has been highly advised against tobacco use. I will continue with daily cessation education.
[2016-06-03] MEDS: NORCO-5 PO PRN (17:08)
[2016-06-03] MEDS: NICODERM PATCH TD PRN (17:54)
[2016-06-03] MEDS: DESYREL PO SCH (21:59)
[2016-06-03] MEDS: DULCOLAX PO SCH (22:00)
[2016-06-03] MEDS: PRAVACHOL PO SCH (22:00)
[2016-06-04] MEDS: NORCO-5 PO PRN ×2 (01:26→15:41)
[2016-06-04] MEDS: DUONEB (A & A) INH SCH ×6 (03:29→23:37)
[2016-06-04] MEDS: SOLU-MEDROL IV SCH ×4 (03:57→21:51)
[2016-06-04] MEDS: PRILOSEC PO SCH (06:28)
[2016-06-04] MEDS: LOVENOX SUBQ SCH (06:30)
[2016-06-04 07:19] LABS: AGAP 16; BUN 23 mg/dL (8-22); CHLORIDE 91 mmol/L (98-107); COSMO 277; POTASSIUM 4.8 mmol/L (3.5-5.1); SODIUM 136 mmol/L (136-145); TCO2 29 mmol/L (25-35)
[2016-06-04] MEDS: ASPIRIN PO SCH (08:45)
[2016-06-04] MEDS: CELEXA PO SCH (08:45)
[2016-06-04] MEDS: APRESOLINE PO SCH ×3 (08:45→16:50)
[2016-06-04] MEDS: LIORESAL PO SCH (08:45)
[2016-06-04] MEDS: PRINIVIL PO SCH (08:46)
[2016-06-04] MEDS: ULTRAM PO SCH ×4 (08:46→21:50)
[2016-06-04] MEDS: XANAX PO SCH ×3 (08:47→18:40)
[2016-06-04] MEDS: COREG PO SCH ×2 (08:51→21:50)
[2016-06-04] MEDS: NICODERM PATCH TD PRN (08:59)
[2016-06-04] MEDS: VANCOMYCIN 1 GM/NS 250 ML IV SCH (09:48)
--- NOTE | 2016-06-04 14:44 | PROGRESS NOTE ---
DATE: 06/04/2016 SUBJECTIVE: This patient states that she is feeling better. She is not complaining of shortness of breath today. We will continue with oxygen. This patient needs vancomycin to complete 14 days, and she needs to go to a rehabilitation center, pending placement. OBJECTIVE: Vital signs: Temperature 98.9, pulse 75, respiratory rate 18, blood pressure 163/70, oxygen saturation 100% on 2 liters of nasal cannula. HEENT: Head normocephalic. No trauma . PERRLA. Neck: Supple. No JVD. No masses. Central trachea. Cardiovascular: Regular rate and rhythm. No murmurs. Chest: Bilateral scattered rales at the bases and diffuse rhonchi. Abdomen: Soft, nontender, nondistended. No hepatosplenomegaly. Extremities: No edema. No clubbing. No cyanosis. Decreased muscle mass. Neurological examination: The patient is alert and oriented x3. She has 2 out of 5 left upper extremity and lower extremity strength. The right side is 5 out of 5. LABORATORY: Sodium 136, potassium 4.8, chloride 91, bicarbonate 29, BUN 23, creatinine 0.7, glucose 124, calcium 10. ASSESSMENT AND PLAN: 1. Bacteremia secondary to Staphylococcus capitis. Will continue with antibiotics. She is on vancomycin. She needs to complete at least 14 days of treatment as an outpatient. Echocardiogram did not show any kind of vegetation/endocarditis. Pending rehabilitation center placement. 2. Urinary tract infection. Continue with antibiotics. 3. Chronic obstructive pulmonary disease exacerbation. This is much better. I will continue with the same treatment for now. 4. Acute on chronic respiratory failure, resolved, likely secondary to chronic obstructive pulmonary disease exacerbation. 5. Acute kidney injury, resolved. 6. History of cerebrovascular accident with left side hemiparesis. Continue with the same management. 7. Hypertension. The blood pressure is better controlled. I will continue with the same management for now. 8. Hyperkalemia, resolved. 9. Dehydration, resolved. 10. Tobacco abuse. The patient has been highly advised against tobacco use. I will continue with daily cessation education.
--- NOTE | 2016-06-04 15:21 | Diag Imaging Result Document ---
PROCEDURE NAME: DUPLEX RENAL ARTY OR VEIN LMTD - 06/04/2016 DUPLEX RENAL ULTRASOUND: FINDINGS: The right renal artery ratio is normal at 1.75. The right resistive index is normal at 0.70. The left renal artery ratio is normal at 2.1. The left resistive index is normal at 0.63. The right kidney measures 9.6 x 4.5 x 3.9 cm in size. The left kidney measures 9.2 x 4.3 x 4.6 cm in size. There is no renal mass or hydronephrosis identified. Images of the urinary bladder demonstrate no lesion. IMPRESSION: Unremarkable exam.
[2016-06-04] MEDS: ROCEPHIN 1 GM/NS 50 ML IV SCH (16:50)
[2016-06-04] MEDS: DESYREL PO SCH (21:50)
[2016-06-04] MEDS: PRAVACHOL PO SCH (21:50)
[2016-06-04] MEDS: DULCOLAX PO SCH (21:51)
[2016-06-05] MEDS: DUONEB (A & A) INH SCH ×6 (03:30→23:30)
[2016-06-05] MEDS: VANCOMYCIN 1 GM/NS 250 ML IV SCH ×2 (03:44→21:49)
[2016-06-05] MEDS: PRILOSEC PO SCH ×2 (05:34→08:08)
[2016-06-05] MEDS: SOLU-MEDROL IV SCH ×3 (05:34→21:49)
[2016-06-05] MEDS: LOVENOX SUBQ SCH (05:35)
[2016-06-05] MEDS: NORCO-5 PO PRN (05:43)
[2016-06-05 06:48] LABS: AGAP 7; BUN 24 mg/dL (8-22); CALCIUM 9.2 mg/dL (8.8-10.2); CHLORIDE 94 mmol/L (98-107); COSMO 276; POTASSIUM 4.3 mmol/L (3.5-5.1); SODIUM 135 mmol/L (136-145); TCO2 34 mmol/L (25-35)
[2016-06-05] MEDS: CELEXA PO SCH (08:06)
[2016-06-05] MEDS: COREG PO SCH ×2 (08:07→20:07)
[2016-06-05] MEDS: LIORESAL PO SCH (08:07)
[2016-06-05] MEDS: PRINIVIL PO SCH (08:07)
[2016-06-05] MEDS: ASPIRIN PO SCH (08:07)
[2016-06-05] MEDS: XANAX PO SCH ×3 (08:07→20:06)
[2016-06-05] MEDS: ULTRAM PO SCH ×4 (08:07→20:06)
[2016-06-05] MEDS: APRESOLINE PO SCH ×3 (08:07→18:08)
[2016-06-05] MEDS: NICODERM PATCH TD PRN (13:44)
--- NOTE | 2016-06-05 16:31 | PROGRESS NOTE ---
DATE: 06/05/2016 SUBJECTIVE: This patient states that she is feeling better, she is still complaining of shortness of breath today. This patient will be discharged with vancomycin to complete 14 more days, pending placement. OBJECTIVE: Vital Signs: Temperature 98.5 degrees, pulse 78, respiratory rate 18, blood pressure 157/73, O2 saturation 95 on nasal cannula. HEENT: Head normocephalic. No trauma. PERRLA. Neck: Supple. No JVD. No masses. Central trachea. Chest: Bilateral scattered rales at the bases and diffuse rhonchi. Cardiovascular: RRR. Abdomen: Soft, nontender, nondistended. No hepatosplenomegaly. Extremities: No edema. No clubbing. No cyanosis. Decreased muscle mass. Neurological: The patient is alert and oriented x3. She has 2/5 left upper extremity and lower extremity strength. The right side is 5/5. LABORATORY: Sodium 135, potassium 4.3, chloride 94, bicarbonate 34, BUN 24, creatinine 0.7, glucose 140, calcium 9.2. ASSESSMENT AND PLAN: 1. Bacteremia secondary to Staphylococcus capitis. Will continue with antibiotics. She is on vancomycin. She needs to complete at least 14 days of treatment as an outpatient. Echocardiogram did not show any kind of vegetation or endocarditis. Pending placement. 2. Urinary tract infection. Continue with antibiotics. 3. Chronic obstructive pulmonary disease exacerbation. This is much better. She is not complaining of any shortness of breath at this moment. We will continue with the same management. 4. Acute on chronic respiratory failure, resolved. 5. Acute kidney injury, resolved. 6. History of cerebrovascular accident with left side hemiparesis. Aware. 7. Hypertension, better controlled. Continue to monitor. 8. Hyperkalemia resolved. 9. Dehydration resolved. 10. Tobacco abuse. This patient has been highly advised against tobacco abuse. I will continue with daily cessation education.
[2016-06-05] MEDS: ROCEPHIN 1 GM/NS 50 ML IV SCH (17:32)
[2016-06-05] MEDS: DESYREL PO SCH (20:06)
[2016-06-05] MEDS: DULCOLAX PO SCH (20:06)
[2016-06-05] MEDS: PRAVACHOL PO SCH (20:07)
[2016-06-06] MEDS: DUONEB (A & A) INH SCH ×6 (03:23→23:26)
[2016-06-06] MEDS: LOVENOX SUBQ SCH (05:45)
[2016-06-06] MEDS: SOLU-MEDROL IV SCH ×3 (05:45→20:40)
[2016-06-06] MEDS: PRILOSEC PO SCH ×2 (05:46→07:16)
[2016-06-06 07:27] LABS: HEMATOCRIT 36.8 % (37.0-47.0); HEMOGLOBIN 12.1 g/dL (12.0-16.0); IMM GRAN# 0.14 X1000 (0.0-0.04); IMM GRAN% 1.2 % (0.0-0.5); LYMPH# 0.76 X1000 (1.2-3.4); LYMPH% 6.5 % (20.5-51.1); MANUAL DIFF NEEDED? YES; MCH 30.3 PG (27-31); MCHC 32.9 g/dL (33-37); NEUT% 86.3 % (42.2-75.2); PLT 302 X1000 (130-400)
[2016-06-06] MEDS: ULTRAM PO SCH ×4 (08:03→20:41)
[2016-06-06] MEDS: COREG PO SCH ×2 (08:04→20:42)
[2016-06-06] MEDS: ASPIRIN PO SCH (08:04)
[2016-06-06] MEDS: XANAX PO SCH ×3 (08:04→18:50)
[2016-06-06] MEDS: LIORESAL PO SCH (08:04)
[2016-06-06] MEDS: PRINIVIL PO SCH (08:05)
[2016-06-06] MEDS: CELEXA PO SCH (08:05)
[2016-06-06] MEDS: APRESOLINE PO SCH ×3 (08:05→18:38)
[2016-06-06 08:09] LABS: AGAP 10; ALBUMIN 3.1 g/dL (3.5-5.0); ALKALINE PHOSPHATASE 76 U/L (32-104); BUN 32 mg/dL (8-22); CALCIUM 8.8 mg/dL (8.8-10.2); CHLORIDE 93 mmol/L (98-107); COSMO 284; GOT 19 U/L (10-30); GPT 39 U/L (10-36); POTASSIUM 4.1 mmol/L (3.5-5.1); SODIUM 135 mmol/L (136-145); TCO2 32 mmol/L (25-35); TOTAL BILIRUBIN 0.19 mg/dL (0.20-1.00); TOTAL PROTEIN 5.3 g/dL (6.3-8.3)
[2016-06-06 09:33] LABS: BASO 1 % (0-1); LYMPHS 13 % (21-51)
--- NOTE | 2016-06-06 16:05 | PROGRESS NOTE ---
DATE: 06/06/2016 SUBJECTIVE: Ms. Sanchez is a 70-year-old female. She is in no acute distress but is in a bit of an irritated mood. She is currently sitting in bed and eating her lunch. States that she has chronic pain in the right shoulder and has been having a little bit of diarrhea today but no other complaints. She does state that when she gets up with physical therapy that she wishes she had a fan to blow on her, that she feels very hot with activity. PHYSICAL EXAMINATION: Vital Signs: Temperature is 98 degrees, heart rate 83, respiratory rate 18, blood pressure 157/65, O2 saturation 100% on 3 L nasal cannula. General: Ms. Sanchez is a 70- year-old female. She is in no acute distress and is answering questions appropriately. Cardiovascular: S1, S2. Regular rate and rhythm. No rubs, gallops, or murmurs. Pulmonary: Some mild expiratory wheezes noted with prolonged expiration. Decreased in the bases. She is currently on 3 L nasal cannula. No accessory muscle use or work of breathing noted. GI: Soft, nontender, nondistended. Positive bowel sounds x4. LABORATORY DATA: White blood cells 11,000, hemoglobin 12, hematocrit 36, platelet count 302,000. Sodium 135, potassium 4.1, BUN 32, creatinine 0.8, glucose 223, bilirubin 0.19, AST 19, ALT 39, albumin 3.1. IMAGING: On 06/04/2016 had an aortic renal ultrasounds that was unremarkable. ASSESSMENT AND PLAN: 1. Bacteremia secondary to Staphylococcus capitis. Continue antibiotic therapy, vancomycin. Will need a root continue 14 days as outpatient with antibiotics. The most recent blood cultures on 06/01 were negative for any bacteria. 2. Urinary tract infection. Continue treatment. 3. Chronic obstructive pulmonary disease exacerbation. She is on 3 L nasal cannula. Has some mild expiratory wheezes with prolonged expiration. No complaints of shortness of breath at this time but states she does get short of breath when she is active. Will continue albuterol Atrovent nebs, Solu-Medrol 40 IV q.8. 4. Tobacco abuse. Continue nicotine patch and cessation discussed. 5. Hypertension. Continue antihypertensives. 6. Anxiety. Continue Xanax. 7. Acute on chronic respiratory failure, resolved. 8. Acute kidney injury, resolved. 9. History of cerebrovascular accident with left hemiparesis. 10. Hyperkalemia, resolved. 11. Dehydration, resolved. 12. Gastrointestinal prophylaxis. Prilosec. 13. Deep venous thrombosis prophylaxis. Lovenox. 14. Complaints of chronic right shoulder pain. Continue pain medication management. Dictated by GREGORY Verma for Tuan Scott MD
[2016-06-06] MEDS: VANCOMYCIN 1 GM/NS 250 ML IV SCH (18:40)
--- NOTE | 2016-06-06 19:28 | PROGRESS NOTE ---
DATE: 06/06/2016 PRESENT ILLNESS: The patient has a Staph capitis bacteremia the exact origin of which is uncertain. MEDICATIONS: This is the 5th day of treatment with vancomycin for the patient's Staph bacteremia. PHYSICAL EXAMINATION: Vital Signs: Temperature is 98.9 degrees, pulse 83, respirations 20, blood pressure 168/59. Generally: This is an ill-appearing elderly female. She is in no acute distress. Neuro: Patient is paralyzed left arm. Lungs: Clear to auscultation. Cardiovascular: Regular heart rate. I did not hear a murmur. Abdomen: Soft and nontender. LAB AND X-RAY: The patient's aortorenal ultrasound was read as showing there was nothing new. The patient's CBC showed a white count of 11,070, hemoglobin 12.1, and platelet count 302,000. Creatinine 0.8. GFR is greater than 60. Both blood cultures are growing Staph capitis. Repeat blood cultures are sterile. ASSESSMENT AND PLAN: The patient has a Staph bacteremia. We need 9 more days of vancomycin therapy to complete a 2-week treatment course. COMORBIDITIES: Include she is elderly. She has COPD and a history of cigarette smoking. From my point of view the patient can be transferred to a rehab facility that does IV antibiotics. Since the patient's repeat blood cultures are sterile I think we can put a PICC in the patient to finish out her treatment.
[2016-06-06] MEDS: DULCOLAX PO SCH (20:41)
[2016-06-06] MEDS: DESYREL PO SCH (20:42)
[2016-06-06] MEDS: PRAVACHOL PO SCH (20:42)
[2016-06-07] MEDS: SOLU-MEDROL IV SCH ×4 (00:54→20:26)
[2016-06-07] MEDS: DUONEB (A & A) INH SCH ×6 (03:37→23:04)
[2016-06-07] MEDS: PRILOSEC PO SCH (06:03)
[2016-06-07] MEDS: LOVENOX SUBQ SCH (06:03)
[2016-06-07 06:07] LABS: MANUAL DIFF NEEDED? NO
[2016-06-07 06:17] LABS: BASO% 0.1 % (0.0-0.8); HEMATOCRIT 34.6 % (37.0-47.0); HEMOGLOBIN 11.5 g/dL (12.0-16.0); IMM GRAN# 0.25 X1000 (0.0-0.04); IMM GRAN% 1.7 % (0.0-0.5); LYMPH# 1.03 X1000 (1.2-3.4); LYMPH% 6.9 % (20.5-51.1); MCH 30.3 PG (27-31); MCHC 33.2 g/dL (33-37); MCV 91.3 FL (81-99); MONO# 0.95 X1000 (0.11-0.59); MONO% 6.4 % (1.7-9.3); MPV 9.9 FL (7.4-10.4); NEUT% 84.9 % (42.2-75.2); PLT 302 X1000 (130-400); RBC 3.79 XMIL (4.2-5.4)
[2016-06-07 06:38] LABS: PROTIME 10.2 Seconds (9.2-11.7)
[2016-06-07 06:45] LABS: AGAP 9; ALBUMIN 3.1 g/dL (3.5-5.0); ALKALINE PHOSPHATASE 57 U/L (32-104); BUN 32 mg/dL (8-22); CALCIUM 8.6 mg/dL (8.8-10.2); CHLORIDE 96 mmol/L (98-107); COSMO 280; GOT 20 U/L (10-30); GPT 39 U/L (10-36); MAGNESIUM 1.7 mg/dL (1.5-2.7); POTASSIUM 4.4 mmol/L (3.5-5.1); SODIUM 136 mmol/L (136-145); TCO2 31 mmol/L (25-35); TOTAL BILIRUBIN 0.23 mg/dL (0.20-1.00); TOTAL PROTEIN 4.8 g/dL (6.3-8.3)
[2016-06-07] MEDS ORDERED: NS 250 ML ONE (08:07)
[2016-06-07] MEDS: XANAX PO SCH ×3 (09:00→17:24)
[2016-06-07] MEDS: APRESOLINE PO SCH ×3 (09:00→17:23)
[2016-06-07] MEDS: COREG PO SCH ×2 (09:00→20:25)
[2016-06-07] MEDS: ASPIRIN PO SCH (09:30)
[2016-06-07] MEDS: CELEXA PO SCH (09:40)
[2016-06-07] MEDS: PRINIVIL PO SCH (10:45)
[2016-06-07] MEDS: ULTRAM PO SCH ×4 (10:46→20:25)
[2016-06-07] MEDS: LIORESAL PO SCH (10:46)
[2016-06-07] MEDS: VANCOMYCIN 1 GM/NS 250 ML IV SCH (12:49)
--- NOTE | 2016-06-07 14:31 | PROGRESS NOTE ---
DATE: 06/07/2016 PRESENT ILLNESS: The patient has a Staph capitis bacteremia, the exact origin of which I am uncertain. She has had an echocardiogram and we did not see any vegetations. MEDICATIONS: This is day 6 of treatment with vancomycin for the patient's bacteremia. We are using this antibiotic because the patient is penicillin allergic. PHYSICAL EXAMINATION: Vital Signs: Temperature is 98.4 degrees, pulse 92, respirations 20, blood pressure 152/62. General: This is a chronically ill-appearing, elderly female. She is in no acute distress. Lungs: Clear to auscultation. Cardiovascular: Regular heart rate. Abdomen: Soft and nontender. Neurologic: The patient has a left arm paralysis. LAB AND X-RAY: There is no new x-ray today. The [place] [address], hemoglobin 11.5, and platelet count 302,000. Creatinine is 0.7. GFR is greater than 60. ASSESSMENT AND PLAN: I plan to continue with vancomycin for 8 more days to make a 14 day treatment course for the patient's Staph bacteremia. COMORBIDITIES: Include the fact that she is very elderly. She has COPD and a history of cigarette smoking.
--- NOTE | 2016-06-07 16:47 | PROGRESS NOTE ---
DATE: 06/07/2016 SUBJECTIVE: This patient is in no acute distress. She is tolerating p.o. She is always complaining about pain which is chronic and she has been getting medication for this. Physical therapy is on board. Probably tomorrow this patient will be discharged to a rehab center, [facility]. OBJECTIVE: Vital Signs: Temperature 98.4 degrees, pulse 87, respiratory rate 18, blood pressure 145/63, oxygen saturation 100% on 3 L of nasal cannula. HEENT: Head normocephalic. No trauma. PERRLA. Neck: Supple. No JVD. No masses. Central trachea. Chest: Bilateral scattered rales at the bases and rhonchi diffusely. Cardiovascular: RRR. Abdomen: Soft, nontender, nondistended. No hepatosplenomegaly. Extremities: No edema. No clubbing. No cyanosis. Decreased muscle mass. Neurological: The patient is alert and oriented x3. She has 2/5 left upper extremity and lower extremity strength. The right side is 5/5. LABORATORY: WBC 14.8, hemoglobin 11.5, hematocrit 34.6, platelet 302,000. Sodium 136, potassium 4.4, chloride 96, bicarbonate 31, BUN 32, creatinine 0.7, glucose 126, calcium 8.6. ASSESSMENT AND PLAN: 1. Bacteremia secondary to Staphylococcus capitis. We will continue with the antibiotics. She is on vancomycin which we need to complete at least 14 days of treatment and this will be completed hopefully as an outpatient. Echocardiogram did not show any kind of vegetation or endocarditis. Pending placement. 2. Urinary tract infection. Continue with antibiotics. 3. Chronic obstructive pulmonary disease exacerbation. This is much better. She is not complaining of shortness of breath at this moment. We will continue with the same management. 4. Acute on chronic respiratory failure, resolved. 5. Acute kidney injury, resolved. 6. History of cerebrovascular accident with left-sided hemiparesis, aware. 7. Hypertension, better controlled. Continue to monitor. 8. Hyperkalemia, resolved. 9. Dehydration, resolved. 10. Tobacco abuse. This patient has been highly advised against tobacco abuse. I will continue with daily cessation education and nicotine patch.
[2016-06-07] MEDS: DESYREL PO SCH (20:24)
[2016-06-07] MEDS: PRAVACHOL PO SCH (20:24)
[2016-06-07] MEDS: DULCOLAX PO SCH (20:25)
[2016-06-08] MEDS: SOLU-MEDROL IV SCH ×2 (01:13→06:11)
[2016-06-08] MEDS: DUONEB (A & A) INH SCH ×3 (03:38→11:10)
[2016-06-08] MEDS: VANCOMYCIN 1 GM/NS 250 ML IV SCH (06:10)
[2016-06-08] MEDS: LOVENOX SUBQ SCH (06:11)
[2016-06-08] MEDS: PRILOSEC PO SCH (06:11)
[2016-06-08] MEDS: PRINIVIL PO SCH (08:08)
[2016-06-08] MEDS: XANAX PO SCH ×2 (08:08→14:04)
[2016-06-08] MEDS: ULTRAM PO SCH ×2 (08:08→14:04)
[2016-06-08] MEDS: COREG PO SCH (08:08)
[2016-06-08] MEDS: ASPIRIN PO SCH (08:08)
[2016-06-08] MEDS: LIORESAL PO SCH (08:08)
[2016-06-08] MEDS: CELEXA PO SCH (08:08)
--- NOTE | 2016-06-08 08:08 | PROGRESS NOTE ---
DATE: 06/06/2016 PRESENT ILLNESS: The patient has a staph bacteremia, the exact origin of which we are not certain. MEDICATIONS: The patient is receiving IV vancomycin. PHYSICAL EXAMINATION: Vital signs: Temperature is 96.9, pulse 83, respirations 20, blood pressure 168/59. General: This is an elderly patient who looks chronically ill. Neurological: She has a paralyzed left arm. Cardiovascular: Heart rate is regular. Lungs: Clear to auscultation. Abdomen: Soft and nontender. LABORATORY AND X-RAY: The patient's CBC shows a white count of 11,700, hemoglobin 12.1, and platelet count 302,000. Creatinine 0.8. GFR is greater than 60. Blood cultures are growing Staphylococcus capitis. Repeat blood cultures are sterile. The patient's aortorenal ultrasound shows no abnormality. ASSESSMENT AND PLAN: I would suggest continuing treatment with vancomycin. She will need approximately one more week of treatment with vancomycin when she is discharged Monday to the rehab facility. The patient's comorbidities are that she is elderly, she has COPD and a history of cigarette smoking.
[2016-06-08] MEDS: APRESOLINE PO SCH ×2 (08:09→14:04)
[2016-06-08 09:03] LABS: BASO% 0.1 % (0.0-0.8); EOS# 0.01 X1000 (0.0-0.7); EOS% 0.1 % (0.0-10.0); HEMATOCRIT 36.7 % (37.0-47.0); HEMOGLOBIN 12.1 g/dL (12.0-16.0); IMM GRAN# 0.21 X1000 (0.0-0.04); IMM GRAN% 1.2 % (0.0-0.5); LYMPH# 0.94 X1000 (1.2-3.4); LYMPH% 5.4 % (20.5-51.1); MANUAL DIFF NEEDED? YES; MCH 30.3 PG (27-31); MCV 91.8 FL (81-99); MONO# 0.78 X1000 (0.11-0.59); MONO% 4.5 % (1.7-9.3); MPV 9.6 FL (7.4-10.4); NEUT% 88.7 % (42.2-75.2); PLT 317 X1000 (130-400)
[2016-06-08 09:19] LABS: LYMPHS 11 % (21-51); MONO 4 % (1-9)
[2016-06-08 09:39] LABS: AGAP 12; ALBUMIN 3.2 g/dL (3.5-5.0); ALKALINE PHOSPHATASE 51 U/L (32-104); BUN 24 mg/dL (8-22); CALCIUM 8.6 mg/dL (8.8-10.2); CHLORIDE 94 mmol/L (98-107); COSMO 274; GOT 23 U/L (10-30); GPT 45 U/L (10-36); MAGNESIUM 1.7 mg/dL (1.5-2.7); POTASSIUM 4.1 mmol/L (3.5-5.1); SODIUM 135 mmol/L (136-145); TCO2 29 mmol/L (25-35); TOTAL BILIRUBIN 0.44 mg/dL (0.20-1.00)
[2016-06-08 11:12] VITALS: BP 180/80
--- NOTE | 2016-06-08 12:10 | DISCHARGE SUMMARY ---
ADMISSION DATE: 05/30/2016 DISCHARGE DATE: 06/08/2016 CONSULTATIONS: Dr. Blake Perry with infectious disease. PERTINENT PROCEDURES: Echocardiogram showed an EF of 60% with normal wall motion. Aortic renal ultrasound was unremarkable. DISCHARGE DIAGNOSES: 1. Bacteremia secondary to Staphylococcus capitis. Patient will continue on vancomycin for 2 weeks. Her echocardiogram did not show any kind of vegetation. Patient is being discharged to [facility] today. 2. Urinary tract infection. Continue with IV vancomycin. 3. Chronic obstructive pulmonary disease exacerbation, improved. 4. Acute on chronic respiratory failure, resolved. 5. Acute kidney injury, resolved. 6. Cerebrovascular accident with left-sided hemiparesis, aware. 7. Hypertension, controlled. 8. Hyperkalemia, resolved. 9. Dehydration, resolved. 10. Tobacco abuse. The patient has been highly advised against tobacco abuse as well as daily cessation education. 11. Leukocytosis secondary to intravenous and p.o. steroids. HOSPITAL COURSE: Briefly, Ms. Sanchez is a 62-year-old female with known COPD, hypertension, CVA with left-sided weakness. The patient came to the ED complaining of acute on chronic shortness of breath. The patient does carry a longstanding history of chronic dyspnea, worse with exertion. She is on constant home O2 at 2 L. On the day of admission, her breathing had gotten so bad that it occurred at rest and it was making her very anxious, so she came to the ED to get checked out. The patient was found to be in COPD exacerbation as well as acute on chronic respiratory failure secondary to her COPD. She was admitted to the medical telemetry floor. She was placed on steroids as well as bronchodilators and aggressive pulmonary toilet and empiric antibiotics based on her white count, as well as IV fluids. Smoking cessation was reiterated every day. On patient's blood culture, she did have 2 blood cultures that were positive for GPC so Dr. Perry saw the patient. She continued to be on Rocephin as well as vancomycin. Her blood cultures did grow out Staphylococcus capitis. Again, echocardiogram was obtained to rule out any endocarditis. She was shown to have a urinary tract infection. Given the patient's penicillin allergy she was taken down to just vancomycin only for her bacteremia. manager office services was contacted. They found her bed at [facility]. Patient will be going with a PICC line for IV vancomycin. After her vancomycin is complete she will be able to discontinue her PICC line. The patient is appropriate for discharge today. VITAL SIGNS: Temperature is 98.1 degrees, heart rate 77, respirations 16, blood pressure is 180/80, O2 is 99% on 3 L nasal cannula. DISCHARGE DIET: Regular with Boost t.i.d. DISCHARGE MEDICATIONS: Please see MAR as per Dr. Scott. FOLLOWUP: The patient is being discharged to [facility]. She will continue with IV vancomycin for 2 weeks with routine lab work per Dr. Perry. After her 2 weeks of vancomycin her PICC line can be discontinued. Patient will need to follow up with her primary care physician, Dr. Serafin Ahn, after rehab. Again, patient has been advised against smoking cessation as well as means to quit. DISCHARGE TIME: Greater than 30 minutes. Dictated by GREGORY Barney for Tuan Scott MD
[2016-06-09] MEDS ORDERED: PREDNISONE PO SCH (09:00)
== END 2016-06-08 14:31 | DRG 871 ==
LOC: ED 20:11 → 4N 05-30 01:37
PROVIDERS: ATTEND Internal Medicine
PROC: 02HV33Z Insertion of Infusion Device into Superior Vena Cava, Percutaneous Approach (ICD-10-PCS; principal; 2016-06-07)
DX: R78.81 Bacteremia (principal); J96.20 Acute and chronic respiratory failure, unspecified whether with hypoxia or hypercapnia; N17.9 Acute kidney failure, unspecified; I69.954 Hemiplegia and hemiparesis following unspecified cerebrovascular disease affecting left non-dominant side; E87.5 Hyperkalemia; B37.9 Candidiasis, unspecified; J44.1 Chronic obstructive pulmonary disease with (acute) exacerbation; N39.0 Urinary tract infection, site not specified; Z99.81 Dependence on supplemental oxygen; E86.0 Dehydration; I10 Essential (primary) hypertension; M19.90 Unspecified osteoarthritis, unspecified site; F41.9 Anxiety disorder, unspecified; F17.210 Nicotine dependence, cigarettes, uncomplicated; Z79.899 Other long term (current) drug therapy; Z79.82 Long term (current) use of aspirin; Z83.3 Family history of diabetes mellitus
CPT/HCPCS: 36569; 71010; 71020; 80048; 80053; 80202; 81001; 82550; 82553; 83735; 83880; 84100; 84484; 85025; 85610; 85730; 87040; 87077; 87186; 93005; 93306; 93976; 94640; 94760; 94761; 94799; 96365; 96366; 96375; J0696; J1650; J2920; J2930; J3370; J7042; J7050; 97116-GP; 97530-GP

== ENCOUNTER 2016-08-05 09:56 | Inpatient (IN) ==
--- NOTE | 2016-08-05 11:38 | Diag Imaging Result Document ---
PROCEDURE NAME: XRAY PELVIS W/HIP 2-3VW LT - 08/05/2016 X-RAY PELVIS WITH LEFT HIP: INDICATION: Fall. FINDINGS: There is an impacted fracture of the left femoral neck. There is no dislocation. IMPRESSION: Impacted left femoral neck fracture.
--- NOTE | 2016-08-05 11:39 | Diag Imaging Result Document ---
PROCEDURE NAME: SHOULDER-RIGHT - 08/05/2016 RIGHT SHOULDER, TWO VIEWS: INDICATION: Pain. FINDINGS: No fracture, dislocation, or acute joint space abnormality is identified. There are mild degenerative changes. IMPRESSION: No acute abnormalities are appreciated.
[2016-08-05] MEDS ORDERED: NS 1,000 ML IV ONE (11:58)
[2016-08-05] MEDS: MORPHINE IV PRN ×3 (12:16→21:10)
[2016-08-05 14:11] LABS: MANUAL DIFF NEEDED? NO
[2016-08-05 14:51] LABS: AGAP 11; BUN 8 mg/dL (8-22); CALCIUM 9.6 mg/dL (8.8-10.2); CHLORIDE 101 mmol/L (98-107); COSMO 278; POTASSIUM 4.2 mmol/L (3.5-5.1); SODIUM 140 mmol/L (136-145); TCO2 28 mmol/L (25-35)
[2016-08-05 15:15] LABS: BASO% 0.3 % (0.0-0.8); EOS# 0.34 X1000 (0.0-0.7); EOS% 4.7 % (0.0-10.0); HEMATOCRIT 34.5 % (37.0-47.0); HEMOGLOBIN 10.9 g/dL (12.0-16.0); IMM GRAN# 0.01 X1000 (0.0-0.04); IMM GRAN% 0.1 % (0.0-0.5); LYMPH# 1.05 X1000 (1.2-3.4); LYMPH% 14.6 % (20.5-51.1); MCH 29.4 PG (27-31); MCHC 31.6 g/dL (33-37); MONO# 0.63 X1000 (0.11-0.59); MONO% 8.8 % (1.7-9.3); MPV 10.9 FL (7.4-10.4); NEUT% 71.5 % (42.2-75.2); PLT 192 X1000 (130-400); RBC 3.71 XMIL (4.2-5.4)
[2016-08-05] MEDS ORDERED: ZOFRAN IV PRN (15:15)
[2016-08-05] MEDS ORDERED: TYLENOL PO PRN (15:15)
--- NOTE | 2016-08-05 16:05 | HISTORY AND PHYSICAL ---
PRIMARY CARE PHYSICIAN: Dr. Tiago Ureña. CHIEF COMPLAINT: Left hip pain after a fall last night. HISTORY OF PRESENTING ILLNESS: This is a 70-year-old female who presents to [facility] ER with complaints of left hip pain after she states that she had a fall last night. States she was walking in her home and tripped and fell. She states that she has been currently on [facility] hospice. Has a history of COPD with home O2 use and a previous cerebrovascular accident with left-sided weakness. When she arrived to the emergency room a hip and pelvic x-ray of her left hip was obtained that showed an impacted left femoral neck fracture so she will be admitted to the surgical unit at [facility] for further evaluation and treatment. PAST MEDICAL HISTORY: COPD with home O2 use, hypertension, CVA with left-sided weakness, and chronic dyspnea. PAST SURGICAL HISTORY: Hysterectomy, appendectomy and a carpal tunnel release. FAMILY HISTORY: Noncontributory . SOCIAL HISTORY: She currently lives alone. Smokes 1 pack of cigarettes a day and denied any alcohol or illicit drug use. ALLERGIES: To amoxicillin. HOME MEDICATIONS: A current list will be obtained and restarted as appropriate , but at this time we do not have her current list verified. LABORATORY DATA: Showed a white blood cell count of 7.19, a hemoglobin of 10.9 , hematocrit 34.5, platelets 192,000. Sodium 140, potassium 4.2, chloride 101, CO2 28, BUN of 8, creatinine 0.8, glucose of 98. A left hip and pelvis x-ray showed an impression of an impacted left femoral neck fracture. A left shoulder x-ray showed no acute abnormalities appreciated. An EKG showed normal sinus rhythm at 92. Urinalysis is pending. REVIEW OF SYSTEMS: She denied any fever, chills, blurred vision, dizziness, chest pain, coughing. She does have some chronic shortness of breath. O2 via nasal cannula in use. She complains of left hip pain with any movement often times yelling out when she tries to move her left leg. Denies any abdominal pain, constipation, diarrhea, burning or hurting with urination. PHYSICAL EXAMINATION: VITAL SIGNS: Showed a temperature on arrival of 97.7, pulse 95, respirations 18 , blood pressure 160/83, saturating 97% on room air, currently 97% on 2 L. GENERAL: This is a 70-year-old female who is lying in the bed and answers questions appropriately. HEENT: Normocephalic and atraumatic. Pupils are equal, round, reactive to light. Extraocular movements are intact. Oropharynx and nares are clear. NECK: Supple. LUNGS: Clear to auscultation bilaterally with equal lung expansion and chest wall movement. HEART: With regular rate and rhythm. No murmurs, rubs, or gallops. ABDOMEN: Soft, nontender, nondistended. Bowel sounds are present x4 quadrants. EXTREMITIES: No clubbing, cyanosis, or edema. NEUROLOGICAL: The cranial nerves 2-12 appear grossly intact. ASSESSMENT: 1. A left hip fracture. 2. Fall. 3. History of chronic obstructive pulmonary disease. 4. History of cerebrovascular accident with left-sided weakness. 5. Tobacco abuse. 6. Dehydration PLAN: She will be admitted to the surgical unit at [facility]. Placed on telemetry. O2 per protocol. Healthy heart diet now. NPO after midnight. Consult Orthopedics. Recheck a CBC, BMP and urinalysis is currently pending. Normal saline at 100 mL an hour. Morphine 2 mg IV q.2 hours p.r.n., Zofran 4 mg IV q.4 hours p.r.n., Tylenol 650 p.o. q.6 hours p.r.n. , and home medications will need to be verified. Pt is a full code. Ensure gentle hydration Dictated by GREGORY Powers for Eugenio Byers MD cc: MD Eugenio Crandall MD Seen and examined patient and agree with the above evaluation and plan. brad CHERRY
--- NOTE | 2016-08-05 17:39 | PROVIDER DOCUMENTATION ---
This chart was entered by Chinyere Vaughn Scribe, acting as scribe for Vidal Lala MD. HPI-Musculoskeletal Pain/Inj - GENERAL Chief Complaint: Hip Injury Stated Complaint: fall w left hip pain Time Seen by Provider: 08/05/16 10:08 Source: patient - HX OF PRESENT ILLNESS-MUSKULOSKELTAL Nature of Presenting Problem: Pt is 70 y/o F presents to the ED with L hip pain. Pt states she fell last night. Pt states prior CVA with L side weakness. Pt denies LOC. Quality of Pain: reports: aching Severity in ED: moderate Onset/Duration: last night Timing: still present Modifying Factors: improves with: nothing Any recent injury?: Yes (fell) Locality of Occurance: Home Similar Symptoms Previously?: Yes Recently seen or treated by another doctor?: No - FALL INJURY Location of Pain/Injury: reports: other (L hip) Pain Radiation: reports: no radiation Reason for Fall: reports: lost balance Symptoms prior to fall:: reports: none Loss of Consciousness: no loss of consciousness Injury Associated Symptoms: reports: unable to bear weight, weakness, trouble walking. denies: arm pain, back/neck pain, chest pain, diaphoresis, dizziness, headaches, joint pain, muscle aches, nausea, puncture wound, shortness of breath , sensory/motor loss, snap/crack/pop sensation, pain with inspiration, vomiting - HIP/PELVIS PAIN/INJURY Hip Pain Location: reports: hip (L) Pain Radiation: reports: no radiation Context / Method of Injury: reports: fall Associated Symptoms: reports: weakness in legs/feet (L). denies: loss of bladder control, loss of bowel control, lower back pain, muscle spasms, numbness in legs/feet, sensory/motor loss, tingling in legs/feet Review of Systems - Adult - REVIEW OF SYSTEMS - ADULT Constitutional: reports: no symptoms reported Eyes: reports: no symptoms reported Ears, Nose, Mouth & Throat: reports: no symptoms reported Cardiovascular: reports: no symptoms reported Respiratory: reports: no symptoms reported Gastrointestinal: reports: no symptoms reported Genitourinary: reports: no symptoms reported Musculoskeletal: reports: other (L hip pain). denies: bone pain, back pain, joint pain, neck pain Integumentary: reports: no symptoms reported Neurological: reports: no symptoms reported Psychiatric: reports: no symptoms reported Endocrine: reports: no symptoms reported Hematologic/Lymphatic: reports: no symptoms reported Allergic/Immunologic: reports: no symptoms reported All Other Systems: Reviewed and Negative Past History - Adult - PAST MEDICAL HISTORY-ADULT Review of Records: reports: Nursing Assessment Review, Medications Reviewed, Social history reviewed & non-contributory. Major Childhood Illnesses: reports: denies history Cardiovascular: reports: HTN, hyperlipidemia Respiratory: reports: COPD Gastrointestinal: reports: denies history Obstetrical/Gynecological: reports: denies history Genitourinary: reports: denies history Musculoskeletal: reports: denies history Neurological: reports: CVA, stroke deficits (left arm contracted) Psychiatric: reports: anxiety Endocrine/Immune: reports: denies history Other Conditions: reports: denies history - PRIOR SURGERIES/PROCEDURES Surgical/Procedure History: reports: appendectomy, hysterectomy, other (CTS) - IMMUNIZATION STATUS Childhood Immunizations: See Nurse Assessment Flu Vaccine: See Nurse Assessment - FAMILY HISTORY Family History: reviewed, not pertinent - SOCIAL HISTORY Smoking: cigarettes, greater than 1 pack/day Provider spent 3-5 mins advising pt. on dangers of tobacco.: Discussed manners to quit use, and f/u contacts for add'l counseling. Substance Use: denies Living Situation: family Physical Exam-Injury Related - Physical Exam-Injury Related Initial Vital Signs Reviewed: Yes General Appearance: appears well, alert, no apparent distress Eyes: PERRL/EOMI, pink conjunctivae Head, Ears, Nose, Mouth & Throat: normocephalic/atraumatic, moist mucous membranes, normal ENT inspection, TMs normal, pharynx normal Neck: non-tender, full range of motion, supple, normal inspection Respiratory: chest non-tender, lungs clear, normal breath sounds, no pleuratic chest pain, no respiratory distress, no accessory muscle use Cardiovascular: normal peripheral pulses, regular rate, rhythm, no edema, no gallop, no JVD, no murmur Abdominal Exam: normal bowel sounds, non tender, soft, no organomegaly, no pulsatile mass Lymphatic: no adenopathy Back Exam: normal inspection, no CVA tenderness, no vertebral tenderness Extremity: tenderness (L hip). negative: normal range of motion, normal gait, normal inspection, deformity, erythema, swelling Integumentary: normal color, warm/dry, ecchymosis (L hip) Neurologic: grossly normal Psych/Mental Status: normal mood/affect, oriented x 3 Progress - PLAN OF CARE/RESULTS Progress/Plan/Lab Results: Vital Signs - 8 hr 08/05/16 09:57 Temperature 97.7 F Pulse Rate 95 H Respiratory Rate 18 Blood Pressure 160/083 O2 Sat by Pulse Oximetry 97 Orders Category Date Time Status Activity - Strict Bedrest ORDERED Care 08/05/16 11:58 Active Call Admitting on Arrival AT ADMISSION Care 08/05/16 11:59 Inactive Vital Signs Order ROUTINE Care 08/05/16 11:58 Active SHOULDER-RIGHT [RAD] Stat Exams 08/05/16 10:13 Completed XRAY PELVIS W/HIP 2-3VW LT [RAD] Stat Exams 08/05/16 10:13 Completed 0.9% Sodium Chloride Inj [Ns] 1,000 ml Med 08/05/16 11:58 Active IV 100 mls/hr Morphine Med 08/05/16 11:58 Active 2 mg IV Q2H PRN PRN Transfer/Admit Order [TRANSFER] Routine Transfer 08/05/16 12:01 Completed Result Diagrams: 08/05/16 13:57 08/05/16 13:57 - EKG 1 Time of EKG reading by physician:: 13:58 EKG Read and Signed by:: Vidal Lala EKG Interpretation (*Must complete 3 of following elements*): Normal Rate: 92 Rhythm: normal sinus rhythm Comments: normal ECG - XRAY 1 XRAY: Right XRAY Study: Shoulder Impression: Normal XRAY Interpretation: no acute disease 2 XRAY: Bilateral XRAY Study: Pelvis Impression: Abnormal XRAY Interpretation: frx L fem neck - CONSULTS/PCP/HOSPITALIST Notification #1 *Consult/PCP/Hospitalist*: Dr. Bunch Time Discussed: 11:45 Reason/Comments: Dr. Lala consulted with Dr. Bunch about admit of Pt Consult Disposition: other (Dr. Bunch states will consult on admit) #2 Consult: Dr. Magaña Time Discussed: 11:48 Reason/Comments: Dr. Magaña consulted with Dr. Lala about admit. Consult Disposition: other (Dr. Magaña states consult with [facility] hospitalist then call her back.) #3 Consult: Dr. Quansah Time Discussed: 11:56 Reason/Comments: Dr. Lala consulted with Dr. Byers about Pt Consult Disposition: Will see in ED Departure - Departure Time of Disposition Decision: 11:45 DIAGNOSIS: Fracture of left hip Qualifiers: Encounter type: initial encounter Fracture type: closed Qualified Code(s): S72.002A - Fracture of unspecified part of neck of left femur, initial encounter for closed fracture Disposition: ADMITTED INPATIENT 09 Certified Medical Emergency: Emergent Condition: Stable - Critical Care Note This patient required my direct & personal management of CC.: No This chart was documented by the indicated scribe, (Chinyere Vaughn, Shannon) and accurately reflects the services I performed and decisions made by me, Vidal Lala MD, as attested by the provider's signature.
[2016-08-05 18:37] LABS: URINE MICRO REVIEW NEEDED? NO; URINE SOURCE CATH
[2016-08-05 18:54] LABS: BILIRUBIN URINE NEGATIVE (NEGATIVE); BLOOD URINE MODERATE (NEGATIVE); COLOR YELLOW; GLUCOSE URINE NEGATIVE (NEGATIVE); LEUKOCYTES URINE MODERATE (NEGATIVE); NITRITE URINE NEGATIVE (NEGATIVE); PROTEIN URINE 30 mg/dL (NEGATIVE); SP GRAVITY URINE 1.013; TURBIDITY URINE CLEAR (CLEAR); UROBILINOGEN URINE NORMAL (NORMAL)
[2016-08-05 18:57] LABS: UR EPITHELIAL CELLS <10 /HPF (<10); URINE BACTERIA NEGATIVE /HPF; URINE RBC 20-40 /HPF (<10)
[2016-08-05] MEDS ORDERED: XANAX PO PRN (19:34)
[2016-08-05] MEDS ORDERED: PRAVACHOL PO SCH (21:00)
[2016-08-05] MEDS: COREG PO SCH (21:23)
[2016-08-06] MEDS: MORPHINE IV PRN ×2 (01:07→23:20)
--- NOTE | 2016-08-06 07:24 | CONSULTATION ---
DATE OF CONSULTATION: 08/05/2016 CHIEF COMPLAINT: Left hip pain. HISTORY: The patient is a 70-year-old female who presented to [facility] Emergency Room after she sustained a fall and injured her left hip. She claims that she was in her bathroom and fell at home and had an increased amount of pain. She has been unable to apply weight to the lower extremity due to the significant amount of pain that she has in that leg. She had x-ray performed that showed a left impacted femoral neck fracture. Orthopedics was asked to see her in consultation in regards to further treatment options. PAST MEDICAL HISTORY: COPD with home O2 use, hypertension, CVA with left-sided weakness, and chronic dyspnea. PAST SURGICAL HISTORY: Hysterectomy, appendectomy, carpal tunnel release. SOCIAL HISTORY: She currently lives alone and ambulates. She does continue to smoke 1 pack of cigarettes daily and has denied any alcohol or illegal drug use. ALLERGIES: Amoxicillin. MEDICATIONS: Please see the chart for home medications. LABORATORY DATA: White blood cell count 7.19, hemoglobin 10.9. REVIEW OF SYSTEMS: A 14-point review of systems which was obtained was negative except for as above. PHYSICAL EXAMINATION: Vital signs: Her vital signs are stable. General: She is alert and oriented x3 in no acute distress. HEENT: Pupils are equal, round, reactive to light and accommodation. Extraocular movements are intact. No blood in the nose. Head is normocephalic. Neck: Trachea is midline. Neck is supple. Cardiovascular: There is brisk capillary refill in the extremities. Lungs: Normal aeration is noted. Neurologic: Cranial nerves II through XII are grossly intact. There is no focal deficit. Sensation is intact distally in all distal dermatomes. Musculoskeletal examination of the lower extremities shows her being in hip flexion with bilateral lower extremities. Range of motion of the left lower extremity shows an intense amount of pain. ASSESSMENT: 1. Left impacted femoral neck fracture. 2. History of chronic obstructive pulmonary disease. 3. History of cerebrovascular accident with left-sided weakness. 4. Chronic tobacco abuse. PLAN: I had a long discussion with the family and the patient about the treatment options. I do believe that surgical intervention would be of most benefit to her and the benefits outweigh the risks in regards to this. I would recommend a left hemiarthroplasty. I have discussed the surgery with the family and the patient including the risks, benefits and complications associated with this. She will be n.p.o. after midnight. She will continue IV fluids per Medicine. IV pain medicine will be given over the night. Will plan for this here in the a.m. cc: Kye Bunch MD
[2016-08-06 07:57] LABS: MANUAL DIFF NEEDED? NO
[2016-08-06] MEDS ORDERED: LABETALOL IV PRN ×2 (08:11→12:01)
[2016-08-06 08:22] LABS: BASO% 0.4 % (0.0-0.8); EOS# 0.42 X1000 (0.0-0.7); EOS% 4.5 % (0.0-10.0); HEMATOCRIT 38.4 % (37.0-47.0); HEMOGLOBIN 12.4 g/dL (12.0-16.0); LYMPH# 1.27 X1000 (1.2-3.4); LYMPH% 13.5 % (20.5-51.1); MCH 29.9 PG (27-31); MCHC 32.3 g/dL (33-37); MCV 92.5 FL (81-99); MONO# 0.73 X1000 (0.11-0.59); MONO% 7.8 % (1.7-9.3); MPV 11.1 FL (7.4-10.4); NEUT% 73.8 % (42.2-75.2); PLT 215 X1000 (130-400); RBC 4.15 XMIL (4.2-5.4)
[2016-08-06] MEDS ORDERED: SOLU-CORTEF ONE (08:32)
[2016-08-06] MEDS: COREG PO SCH ×2 (08:36→21:39)
[2016-08-06 08:50] LABS: AGAP 13; BUN 7 mg/dL (8-22); CHLORIDE 99 mmol/L (98-107); COSMO 279; POTASSIUM 4.7 mmol/L (3.5-5.1); SODIUM 141 mmol/L (136-145); TCO2 29 mmol/L (25-35)
[2016-08-06] MEDS ORDERED: KEFZOL 1 GM/D5W 2 GM/100 ML IVPB ONE (08:52)
[2016-08-06] MEDS ORDERED: MARCAINE 0.25% PF/EPI 1:200,000 ONE (08:54)
[2016-08-06] MEDS ORDERED: NEOSPORIN G.U. IRRIGANT ONE (09:00)
[2016-08-06] MEDS ORDERED: PRINIVIL PO SCH (09:00)
[2016-08-06] MEDS ORDERED: LOVENOX SUBQ SCH (11:30)
[2016-08-06] MEDS ORDERED: DIPRIVAN 1% ONE (11:39)
[2016-08-06] MEDS ORDERED: FENTANYL ONE (11:39)
[2016-08-06] MEDS ORDERED: TYLENOL PO PRN (12:01)
[2016-08-06] MEDS ORDERED: ZOFRAN IV PRN (12:01)
[2016-08-06] MEDS: ULTRAM PO SCH ×3 (13:57→21:39)
[2016-08-06] MEDS: XANAX PO SCH ×2 (13:57→17:00)
[2016-08-06] MEDS: APRESOLINE PO SCH ×2 (13:57→21:38)
[2016-08-06] MEDS: NORCO-5 PO PRN (13:57)
--- NOTE | 2016-08-06 14:26 | PROGRESS NOTE ---
DATE: 08/06/2016 SUBJECTIVE: No acute events noted overnight. OBJECTIVE: Vital Signs: Temperature 98.2 degrees, blood pressure 137/67, heart rate 84, respiratory rate 16, O2 saturation 100% on 2L nasal cannula. General: This is an elderly female, lying in bed in no acute distress. HEENT: Head normocephalic, atraumatic. Heart: S1 and S2 normal. Regular rate and rhythm. Lungs: Clear to auscultation bilaterally. Abdomen: Positive bowel sounds. Soft, nontender, nondistended. Extremities: No edema. No cyanosis. No calf tenderness. Neurologic: The patient is alert and oriented x3. LABORATORIES: White blood cell count 9.2, hemoglobin 12, hematocrit 38, platelets 215,000. Sodium 149, potassium 4.7, chloride 99, CO2 of 29, BUN 7, creatinine 0.7, glucose 92. ASSESSMENT AND PLAN: 1. Left femoral neck fracture. The patient is scheduled for surgery today. 2. Chronic obstructive pulmonary disease, stable. Will continue on p.r.n. bronchodilator therapy. 3. History of cerebrovascular accident. Aware. 4. Tobacco abuse. The patient has been counseled about smoking cessation. 5. Anxiety disorder. Continue on Xanax. 6. Hypertension. Continue on the current antihypertensives. 7. Deep vein thrombosis prophylaxis. Continue on Lovenox. cc: Anabel Magaña MD
[2016-08-06] MEDS: ALBUTEROL NEB INH SCH ×2 (15:54→20:10)
[2016-08-06] MEDS ORDERED: APRESOLINE PO SCH (21:00)
[2016-08-06] MEDS: PERIDEX MT SCH (21:38)
[2016-08-06] MEDS: DESYREL PO SCH (21:38)
[2016-08-06] MEDS: DITROPAN XL PO SCH (21:39)
[2016-08-06] MEDS: PRAVACHOL PO SCH (21:39)
[2016-08-06] MEDS ORDERED: DULCOLAX PR ONE (23:58)
[2016-08-07] MEDS: MORPHINE IV PRN ×3 (03:05→14:31)
[2016-08-07] MEDS: ALBUTEROL NEB INH SCH ×4 (03:15→19:30)
[2016-08-07 05:48] LABS: MANUAL DIFF NEEDED? NO
[2016-08-07 05:55] LABS: EOS# 0.07 X1000 (0.0-0.7); EOS% 0.8 % (0.0-10.0); HEMATOCRIT 28.5 % (37.0-47.0); HEMOGLOBIN 9.1 g/dL (12.0-16.0); LYMPH# 1.12 X1000 (1.2-3.4); LYMPH% 12.2 % (20.5-51.1); MCH 29.7 PG (27-31); MCHC 31.9 g/dL (33-37); MCV 93.1 FL (81-99); MONO# 1.05 X1000 (0.11-0.59); MONO% 11.4 % (1.7-9.3); MPV 10.6 FL (7.4-10.4); NEUT% 75.6 % (42.2-75.2); PLT 197 X1000 (130-400); RBC 3.06 XMIL (4.2-5.4)
[2016-08-07 06:04] LABS: AGAP 9; BUN 16 mg/dL (8-22); CALCIUM 9.1 mg/dL (8.8-10.2); CHLORIDE 97 mmol/L (98-107); COSMO 277; POTASSIUM 4.1 mmol/L (3.5-5.1); SODIUM 137 mmol/L (136-145); TCO2 31 mmol/L (25-35)
[2016-08-07] MEDS: PRILOSEC PO SCH (06:32)
[2016-08-07] MEDS: LOVENOX SUBQ SCH (06:33)
[2016-08-07] MEDS ORDERED: MIRALAX PO ONE (09:00)
[2016-08-07] MEDS: PRINIVIL PO SCH (09:39)
[2016-08-07] MEDS: XANAX PO SCH ×3 (09:41→19:14)
[2016-08-07] MEDS: COREG PO SCH ×2 (09:41→23:50)
[2016-08-07] MEDS: ULTRAM PO SCH ×4 (09:41→23:47)
[2016-08-07] MEDS: PREDNISONE PO SCH (09:41)
[2016-08-07] MEDS: LIORESAL PO SCH (09:42)
[2016-08-07] MEDS: APRESOLINE PO SCH ×4 (09:42→23:56)
[2016-08-07] MEDS: PERIDEX MT SCH ×2 (09:44→23:49)
[2016-08-07] MEDS: XANAX PO PRN (14:31)
--- NOTE | 2016-08-07 18:30 | PROGRESS NOTE ---
DATE: 08/07/2016 SUBJECTIVE: The patient is resting comfortably in bed. She states she has not had a bowel movement yet. OBJECTIVE: Vital Signs: Temperature 98 degrees, blood pressure 140/88, heart rate 103, respirations 22, O2 saturations 97% on 3 L nasal cannula. General: This is an elderly female lying in bed in no acute distress. Head: Normocephalic, atraumatic. Heart: S1, S2. Normal. Regular rate and rhythm. Lungs: Clear to auscultation bilaterally. No wheezes, no rales. No rhonchi. Abdomen: Positive bowel sounds. Soft, nontender, nondistended. Extremities: No edema. No cyanosis. LABS: White blood cell count 9.2, hemoglobin 9.1, hematocrit 28, platelets 197,000. Sodium 137, potassium 4.1, chloride 97, CO2 31, BUN 16, creatinine 0.9 glucose 141. ASSESSMENT AND PLAN: 1. Status post left hip repair. Management as per the orthopedic surgeon. 2. Metabolic encephalopathy. The patient may have some baseline dementia. Will continue to monitor the patient's mental status closely. 3. Constipation. Continue on scheduled laxative therapy. 4. Hypertension. Controlled. 5. Chronic obstructive pulmonary disease. Continue on albuterol treatments 4 times a day. 6. Anxiety disorder. Continue on Xanax. 7. Deep vein thrombosis prophylaxis. Continue on Lovenox. 8. Disposition. The patient will likely be discharged to rehab once cleared by the orthopedic surgeon. cc: Anabel Magaña MD
[2016-08-07] MEDS: NORCO-5 PO PRN (19:14)
--- NOTE | 2016-08-07 21:12 | PROGRESS NOTE ---
DATE: 08/07/2016 ORTHOPEDICS SUBJECTIVE: Post day #1 of a left hip hemiarthroplasty with cabling of the calcar fracture. The patient is doing well. She has had some delirium episodes overnight but this was improved with me coming to speak with her. She claims that her hip pain is much improved at this time and she tried to walk with a cane, but had some slight discomfort with doing so. Otherwise, she is doing well. No other complaints at this time. OBJECTIVE: Gross motor and sensory are intact in the lower extremities. The calf is soft and nontender. Her dressing is saturated but will be changed. PLAN: She is improved, doing well. I will recommend maintaining at least 2 overnight stays after this. Will continue DVT prophylaxis with Lovenox. She can be 50% weightbearing on that left lower extremity. Will continue to follow her during her stay in the hospital. cc: Kye Bunch MD
--- NOTE | 2016-08-07 21:22 | OPERATIVE NOTE ---
PROCEDURE DATE : 08/06/2016 PREOPERATIVE DIAGNOSES: 1. Acute left-sided femoral neck fracture. 2. Osteoporosis. 3. Chronic tobacco abuse. 4. Multiple other medical comorbidities. POSTOPERATIVE DIAGNOSES: 1. Acute left-sided femoral neck fracture. 2. Osteoporosis. 3. Chronic tobacco abuse. 4. Multiple other medical comorbidities. PROCEDURE: 1. Left hip hemiarthroplasty utilizing bipolar components. 2. Open fixation of calcar fracture utilizing cable implant. SURGEON: Kye Bunch MD ACID BLOWER: Radhames Bunch DO ESTIMATED BLOOD LOSS: 100 mL. ANTIBIOTICS: Ancef 1 g was given IV preoperatively prior to the procedure. HISTORY: The patient is a 70-year-old female who presented to the hospital after she sustained a fall at home. She had been complaining of pain in her hip for some time but claims that this pain has significantly worsened here recently. Upon evaluation of the patient, she had a very significant log roll without any other complaints in other extremities at this time. IMPLANTS: 1. Biomet femoral stem, size 2. 2. Ceramic on poly bipolar femoral head components. ANESTHESIA: General LMA with epidural. SPECIMEN: Femoral head was sent to pathology for analysis. COMPLICATIONS: None. DISPOSITION: The patient was sent to PACU in stable condition. PROCEDURE: The patient was taken to the operative suite, placed in the supine position. Prior to this, Anesthesia gave the patient an epidural, but the epidural was not complete, and we needed LMA to further proceed with the procedure. The patient's legs were padded and placed into holsters, and she was padded on all bony prominences. At that time, time out was performed for left hip hemiarthroplasty which was confirmed by myself and all assistants. The left hip was prepped using chlorhexidine scrub and ChloraPrep and then draped in normal sterile fashion. The ASIS was identified, followed by identification of my incision utilizing anterior ASI approach. Ioban was then placed. I then used a 10 blade and placed an incision on the left hip with dissection down to the fascial layer. The fascia was then split and my dissection was taken medial to the tensor fascia. My initial dissection was slightly medial and I did palpate the acetabulum, however, I did redirect my dissection lateral to the sartorius, and this was retracted. My retractors were placed on the anterior and superior aspect of the femoral neck, followed by placement of a small retractor on the superior lip of the acetabulum. I then performed a capsulotomy and placed a suture into that area, followed by identification of my femoral neck. I used a saw to make my cuts into the femoral neck and the femoral head was removed. I did like the cut length of my femoral neck. At that time, I then removed all excess bony tissue and performed a release of the femoral neck. Utilizing the HANA table, I then placed the femoral neck into the most optimal position for broaching. A cookie cutter was then used, followed by the rattail to place into the femoral canal. I started broaching at size 0 and increased up to a size 1 at that time. Trial components were placed and the hip was reduced. X- rays were taken to confirm the position. It was a small component and we decided to increase. I then removed the hip, followed by placement of 2 secondary broaches. Upon placement of my final implant, there was a calcar fracture that was noted. I then proceeded with the cable system, utilizing the U system and placed it around the femoral neck, placing the cable, tightened this appropriately and crimped the cable into position. I did tighten the cable to approximately 40 pounds of torque. The cable was then cut, followed by placement of my final components, and then the hip was reduced. Thorough irrigation was performed prior to this and after the hip was reduced. X-rays were taken to confirm my positioning and of the final implants. At that time I continued to thoroughly irrigated the area, followed by closure. Closure began with a #1 Vicryl for the fascial layer, followed by 2-0 Vicryl for the skin and david. Xeroform, 4x4's and tape were placed. All needle and sponge counts were correct x2. The patient was then placed on the table and taken to PACU in stable condition. The patient tolerated the procedure very well. There were no complications other than the calcar fracture with cabling system. I will continue to follow her closely. She will be 50% weightbearing at this time. cc: Kye Bunch MD
[2016-08-07] MEDS: PRAVACHOL PO SCH (23:47)
[2016-08-07] MEDS: DITROPAN XL PO SCH (23:48)
[2016-08-07] MEDS: DESYREL PO SCH (23:48)
[2016-08-07] MEDS: MIRALAX PO SCH (23:51)
[2016-08-07] MEDS: COLACE PO SCH (23:51)
[2016-08-07] MEDS: DULCOLAX PR SCH (23:51)
[2016-08-08] MEDS: ALBUTEROL NEB INH SCH ×4 (03:05→19:35)
[2016-08-08 05:58] LABS: HEMATOCRIT 25.2 % (37.0-47.0); HEMOGLOBIN 8.1 g/dL (12.0-16.0); MCH 29.8 PG (27-31); MCHC 32.1 g/dL (33-37); MCV 92.6 FL (81-99); MPV 10.2 FL (7.4-10.4); RBC 2.72 XMIL (4.2-5.4)
[2016-08-08 06:09] LABS: AGAP 10; BUN 17 mg/dL (8-22); CALCIUM 8.5 mg/dL (8.8-10.2); CHLORIDE 99 mmol/L (98-107); COSMO 278; POTASSIUM 3.9 mmol/L (3.5-5.1); SODIUM 138 mmol/L (136-145); TCO2 29 mmol/L (25-35)
[2016-08-08] MEDS: PRILOSEC PO SCH (06:35)
[2016-08-08] MEDS: NORCO-5 PO PRN (06:35)
[2016-08-08] MEDS: LOVENOX SUBQ SCH (06:35)
[2016-08-08] MEDS: PREDNISONE PO SCH (08:30)
[2016-08-08] MEDS: COREG PO SCH ×2 (08:30→23:00)
[2016-08-08] MEDS: PERIDEX MT SCH ×2 (08:30→22:58)
[2016-08-08] MEDS: XANAX PO SCH ×3 (08:30→16:50)
[2016-08-08] MEDS: PRINIVIL PO SCH (08:31)
[2016-08-08] MEDS: APRESOLINE PO SCH ×3 (08:31→22:57)
[2016-08-08] MEDS: ULTRAM PO SCH ×4 (08:32→23:00)
[2016-08-08] MEDS: LIORESAL PO SCH (08:32)
[2016-08-08] MEDS: COLACE PO SCH ×2 (08:32→23:01)
[2016-08-08] MEDS: MIRALAX PO SCH ×2 (08:32→22:59)
[2016-08-08] MEDS ORDERED: LR 2,000 ML ONE (09:10)
[2016-08-08] MEDS ORDERED: EPHEDRINE ONE (09:10)
[2016-08-08] MEDS ORDERED: ZOFRAN ONE (09:10)
[2016-08-08] MEDS ORDERED: ANESTHESIA PB SET 88 IN 5742 ONE (09:10)
[2016-08-08] MEDS ORDERED: EXTENSION SET 32 IN 4522 ONE (09:10)
--- NOTE | 2016-08-08 13:47 | Diag Imaging Result Document ---
PROCEDURE NAME: ABDOMEN FLAT/UPRIGHT - 08/08/2016 ABDOMEN, 2 VIEWS: COMPARISON: 08/05/2016. FINDINGS: The upright exam is badly distorted by patient motion artifact. However, there is no obvious free air. On the supine exam, there is a new left femoral head prosthesis. This is in good position with no evidence of complication. There is severe constipation throughout the colon, which is stable from the x-ray exam of 08/05/2016. IMPRESSION: Severe constipation stable from prior exams.
[2016-08-08] MEDS ORDERED: FLEET MINERAL OIL ENEMA PR ONE (13:53)
[2016-08-08] MEDS: XANAX PO PRN (14:12)
[2016-08-08] MEDS: DULCOLAX PR SCH (22:59)
[2016-08-08] MEDS: PRAVACHOL PO SCH (22:59)
[2016-08-08] MEDS: DITROPAN XL PO SCH (23:00)
[2016-08-08] MEDS: DESYREL PO SCH (23:00)
[2016-08-09] MEDS: ALBUTEROL NEB INH SCH ×4 (03:42→19:15)
[2016-08-09] MEDS: XANAX PO PRN (04:01)
[2016-08-09] MEDS: NORCO-5 PO PRN ×2 (04:01→10:00)
[2016-08-09 05:45] LABS: HEMOGLOBIN 7.6 g/dL (12.0-16.0); MCH 29.3 PG (27-31); MCHC 31.7 g/dL (33-37); MCV 92.7 FL (81-99); MPV 10.8 FL (7.4-10.4); RBC 2.59 XMIL (4.2-5.4)
[2016-08-09 06:03] LABS: AGAP 9; BUN 22 mg/dL (8-22); CHLORIDE 100 mmol/L (98-107); COSMO 283; SODIUM 140 mmol/L (136-145); TCO2 31 mmol/L (25-35)
[2016-08-09] MEDS: LOVENOX SUBQ SCH (06:49)
[2016-08-09] MEDS: PRILOSEC PO SCH (06:49)
[2016-08-09] MEDS ORDERED: DULCOLAX PR ONE (07:42)
[2016-08-09] MEDS ORDERED: MOVANTIK PO ONE (07:43)
[2016-08-09] MEDS ORDERED: NS 500 ML ONE (09:54)
[2016-08-09] MEDS: LACTULOSE PO SCH ×2 (09:59→20:47)
[2016-08-09] MEDS: COLACE PO SCH ×2 (09:59→20:48)
[2016-08-09] MEDS: PERIDEX MT SCH ×2 (09:59→20:47)
[2016-08-09] MEDS: PREDNISONE PO SCH (10:00)
[2016-08-09] MEDS: COREG PO SCH ×2 (10:00→20:47)
[2016-08-09] MEDS: LIORESAL PO SCH (10:00)
[2016-08-09] MEDS: ULTRAM PO SCH ×4 (10:03→20:47)
[2016-08-09] MEDS: MIRALAX PO SCH ×2 (10:04→20:47)
[2016-08-09] MEDS: PRINIVIL PO SCH (10:04)
[2016-08-09] MEDS: APRESOLINE PO SCH ×3 (10:05→20:48)
[2016-08-09] MEDS: XANAX PO SCH ×3 (10:05→18:27)
[2016-08-09] MEDS ORDERED: GOLYTELY PO ONE (13:37)
--- NOTE | 2016-08-09 17:34 | PROGRESS NOTE ---
DATE: 08/09/2016 SUBJECTIVE: The patient is resting comfortably in bed. She has not had a bowel movement yet. She has been refusing several laxatives that were ordered. OBJECTIVE: Vital Signs: Temperature 98 degrees, blood pressure 114/57, heart rate 77, respirations 16, O2 saturations 95% on 2 L nasal cannula. General: This is an elderly female, lying in bed, in no acute distress. Head: Normocephalic atraumatic. Heart: S1, S2. Normal. Regular rate and rhythm. Lungs: Clear to auscultation bilaterally. No wheezing. No rales. No rhonchi. Abdomen: Positive bowel sounds. Soft, nontender, nondistended. Extremities: No edema. No cyanosis. No calf tenderness. Neurologic: The patient is awake and alert. The patient does have periods of confusion. LABS: White blood cell count 8.1, hemoglobin 7.6, hematocrit 24, platelets 207,000. Sodium 140, potassium 4, chloride 100, CO2 31, BUN 22, creatinine 0.7 and glucose 110. ASSESSMENT AND PLAN: 1. Status post left hip repair. Stable. 2. Dementia. Aware. 3. Constipation. The patient has been refusing some of the laxative therapy. We will order Movantik and ordered the GoLYTELY prep. 4. Hypertension. Controlled. 5. Chronic obstructive pulmonary disease. Continue on bronchodilator therapy. 6. Anxiety disorder. Continue on Xanax. 7. Deep vein thrombosis prophylaxis. Continue on Lovenox. 8. Disposition. The patient will be discharged to rehab once a bed is available and she has had a bowel movement. cc: Anabel Magaña MD
--- NOTE | 2016-08-09 20:10 | DISCHARGE SUMMARY ---
ADMISSION DATE: 08/05/2016 DISCHARGE DATE: 08/09/2016 CONSULTATIONS: Kye Bunch MD with Orthopedics. PERTINENT PROCEDURES: 1. Hip pelvis x-ray showed an impacted left femoral neck fracture. 2. Shoulder x-ray showed no acute abnormalities appreciated. 3. Left hip hemiarthroplasty utilizing bipolar component, open fixation of calcar fracture utilizing cable, performed by Dr. Bunch. DISCHARGE DIAGNOSES: 1. Impacted left femoral neck fracture status post hemiarthroplasty and open fixation 2. Metabolic encephalopathy 3. Constipation. 4. Hypertension 5. Chronic obstructive pulmonary disease. 6. Anxiety. 7. Dementia. 8. Cerebrovascular accident with left-sided weakness. 9. Chronic dyspnea on home O2. HOSPITAL COURSE: Ms. Sanchez is a 70-year-old, female, who is a patient of Dr. Tiago Ureña, who presented to [facility] ER with complaints of left hip pain after she fell in her home. She states that she had currently been on [facility]. She carries a history of COPD with home O2 use, previous CVA with left-sided weakness. In the ED, patient had a hip and pelvic x-ray that showed an impacted left femoral neck fracture. She was transferred to [facility] where she underwent a left hemiarthroplasty open fixation with Dr. Bunch. The patient tolerated the procedure well. She has worked with Physical Therapy. She is to be 50% weightbearing on the left lower extremity. The patient will receive 1 unit of blood today. We added lactulose for an abdominal x-ray that does show severe constipation. She can be discharged to rehabilitation after her unit of blood and after BM. The patient will follow up with Dr. Bunch in 2 weeks. VITAL SIGNS: Temperature is 98.6 degrees, heart rate 72, respirations 16, blood pressure 110/58, O2 is 98% on 2 L nasal cannula. DISCHARGE MEDICATIONS: 1. Albuterol nebulizer 2.5 mg inhaled RT 4 times a day. 2. Xanax 0.5 mg p.o. t.i.d. 3. Aspirin 81 mg p.o. daily. 4. Baclofen 10 mg p.o. daily. 5. Coreg 6.25 mg p.o. q.12 hours. 6. Celexa 1 tab p.o. daily 20 mg. 7. Colace 100 mg p.o. b.i.d. 8. Lovenox 40 mg subcutaneous q.24 hours for 21 days. 9. Apresoline 25 mg p.o. t.i.d. 10. [place] 5325, 1 each p.o. q.4 hours. 11. Zestril 10 mg p.o. daily. 12. Prilosec 20 mg p.o. daily. 13. Ditropan XL 10 mg p.o. at bedtime. 14. MiraLAX 17 g p.o. b.i.d. p.r.n. 15. Pravastatin 80 mg p.o. at bedtime. 16. 50 mg p.o. at bedtime. DISCHARGE DIET: Regular with Ensure. FOLLOWUP: The patient is being discharged to rehabilitation. She will need to follow up with Dr. Bunch in 2 weeks. Patient can be 50% weightbearing on left lower extremity. The patient can return to the ED for any worsening of symptoms. DISCHARGE TIME: Greater than 30 minutes. Dictated by GREGORY Barney for Anabel Magaña MD cc: MD Tiago Fraesr MD [facility]
[2016-08-09] MEDS: DITROPAN XL PO SCH (20:48)
[2016-08-09] MEDS: PRAVACHOL PO SCH (20:48)
[2016-08-09] MEDS: DESYREL PO SCH (20:48)
[2016-08-10] MEDS: NORCO-5 PO PRN ×3 (00:03→15:10)
[2016-08-10] MEDS: XANAX PO PRN (00:04)
[2016-08-10] MEDS: DULCOLAX PR SCH (00:12)
[2016-08-10] MEDS: ALBUTEROL NEB INH SCH ×2 (03:25→10:10)
[2016-08-10] MEDS: MOVANTIK PO SCH ×2 (05:23→08:28)
[2016-08-10] MEDS: LOVENOX SUBQ SCH (05:23)
[2016-08-10] MEDS: PRILOSEC PO SCH ×2 (05:23→08:28)
[2016-08-10 06:04] LABS: HEMATOCRIT 31.9 % (37.0-47.0); HEMOGLOBIN 10.4 g/dL (12.0-16.0); MCHC 32.6 g/dL (33-37); MCV 91.9 FL (81-99); MPV 10.6 FL (7.4-10.4); RBC 3.47 XMIL (4.2-5.4)
[2016-08-10 06:12] LABS: AGAP 7; BUN 22 mg/dL (8-22); CALCIUM 8.9 mg/dL (8.8-10.2); CHLORIDE 96 mmol/L (98-107); COSMO 276; POTASSIUM 3.9 mmol/L (3.5-5.1); SODIUM 136 mmol/L (136-145); TCO2 33 mmol/L (25-35)
[2016-08-10] MEDS: COLACE PO SCH (08:14)
[2016-08-10] MEDS: LACTULOSE PO SCH (08:14)
[2016-08-10] MEDS: APRESOLINE PO SCH ×2 (08:14→14:02)
[2016-08-10] MEDS: COREG PO SCH (08:14)
[2016-08-10] MEDS: ULTRAM PO SCH ×2 (08:14→14:02)
[2016-08-10] MEDS: PERIDEX MT SCH (08:15)
[2016-08-10] MEDS: PRINIVIL PO SCH (08:15)
[2016-08-10] MEDS: XANAX PO SCH ×2 (08:15→14:02)
[2016-08-10] MEDS: PREDNISONE PO SCH (08:15)
[2016-08-10] MEDS: MIRALAX PO SCH (08:15)
[2016-08-10] MEDS: LIORESAL PO SCH (08:15)
[2016-08-10 11:20] VITALS: BP 175/77
== END 2016-08-10 15:19 ==
LOC: P.ED 09:56 → SUATTDRO 12:16 → 4N 12:16
PROVIDERS: ATTEND Internal Medicine